=== PATIENT | female | born 1945 | race Caucasian/White ===

== ENCOUNTER 2020-06-27 12:16 | Inpatient (IN) | payer MEDICARE, MEDICAID, SELFPAY ==
[2020-06-27] VITALS (13 sets, daily range): BP systolic 116–152; BP diastolic 68–89; PULSE 65–82; RESP 14–16; TEMP 36.4–36.8; O2SAT 98–99; BMI 24.0; BMI 23.8
--- NOTE | 2020-06-27 12:12 | ECG_ITS ---
APPROVED REPORT Exam: Resting ECG HR:73 bpm ECG Measurements Heart Rate 73 AXES AR 196 P 64 QRSd 90 QRS 34 QT 402 T 90 QTc 442 <Conclusion> Normal sinus rhythm Nonspecific T wave abnormality Abnormal ECG Electronically signed by : Dre Lewis, 06/30/2020 08:33:06
--- NOTE | 2020-06-27 12:20 | XR_ITS ---
PROCEDURE: XR CHEST PORTABLE CLINICAL HISTORY: cough COMPARISON: No exams were available for comparison FINDINGS: The cardiomediastinal silhouette and pulmonary vascularity are within normal limits. The lungs are clear without infiltrates, suspicious nodules, or pleural effusions. No acute bony abnormalities. IMPRESSION: No acute findings. Dictated b Josh Sewell MD 06/27/2020 14:32 Josh Sewell MD in [place] 06/27/2020 14:32
[2020-06-27 12:35] LABS: Basophils # 0.1 K/mm3 (0-0.2); Eosinophils # 0.2 K/mm3 (0.0-0.4); Hematocrit 38.6 % (37.0-47.0); Hemoglobin 12.7 g/dL (12.2-16.2); Lymphocytes # 2.6 K/mm3 (0.7-4.5); Lymphocytes % 32.5 % (10-50); Mean Corpuscular HGB Conc 32.9 g/dL (31.8-35.4); Mean Corpuscular Hemoglobin 31.8 pg (27.0-31.2); Mean Corpuscular Volume 96.6 fl (81-99); Mean Platelet Volume 7.4 fl (7.4-10.4); Monocytes # 0.4 K/mm3 (0.1-1.0); Monocytes % 4.8 % (1.7-9.3); Neutrophils # 4.8 K/mm3 (1.8-7.8); Neutrophils % 59.8 % (37.0-80.0); Platelet Count 368 K/mm3 (142-424); Red Cell Distribution Width 12.5 % (11.5-17.5)
--- NOTE | 2020-06-27 12:41 | HMH.EDCP ---
ED Disposition Clinical Impression: NSTEMI (non-ST elevated myocardial infarction), Hypertension, Dyslipidemia Disposition: Admitted As Inpatient Condition on Discharge: Fair Time of Disposition: 13:49 (Patient admitted to Dr. Smith with cardiology consult) - Critical Care Critical Care Time: No Attestation: On , the high probability of a clinically significant, sudden or life threatening deterioration of the following system(s) required my full and direct attention, intervention and personal management. The time I documented below is in addition to time spent performing reported procedures but includes the following listed in this critical care notation. Medical Decision Making - Sushil Inquiry Pt receiving controlled substance: No Vital Signs: 06/27/20 12:17 Temperature 98 F Temperature Source Oral Pulse Rate [Left Radial] 71 Respiratory Rate 16 Blood Pressure [Right Arm] 137/83 Blood Pressure Mean [Right Arm] 101 Blood Pressure Position [Right Arm] Sitting 02 Sat by Pulse Oximetry 98 Oxygen Delivery Method Room Air - Lab Data Lab Results 06/27/20 12:23: WBC 8.0, RBC 4.00 L, Hgb 12.7, Hct 38.6, MCV 96.6, MCH 31.8 H, MCHC 32.9, RDW 12.5, Plt Count 368, MPV 7.4, Neut % (Auto) 59.8, Lymph % (Auto) 32.5, Mora % (Auto) 4.8, Eos % (Auto) 2.0, Baso % (Auto) 1.0, Neut # (Auto) 4.8, Lymph # (Auto) 2.6, Mora # (Auto) 0.4, Eos # (Auto) 0.2, Baso # (Auto) 0.1 06/27/20 12:23: Sodium 140, Potassium 4.1, Chloride 105, Carbon Dioxide 30, Anion Gap 9.1, BUN 16, Creatinine 0.60, Estimated Creat Clear 54, Estimated GFR 98, Est GFR ( Amer) 119, Glucose 104 H, Calcium 9.5, Total Bilirubin 1.0, AST 30, ALT 20, Alkaline Phosphatase 101, Troponin I 0.17 H, NT-Pro-B Natriuret Pep 1950 H, Total Protein 7.3, Albumin 4.0, Globulin 3.3 H, Albumin/Globulin Ratio 1.2, Lipase 39 Result diagrams: 06/27/20 12:23 06/27/20 12:23 Orders (Tests/Meds): ED MEDICATIONS Generic Name Dose Route Start Last Admin Trade Name Freq PRN Reason Stop Dose Admin Miscellaneous 1 each 06/27/20 13:45 Heparin Drip Consult Request * 07/27/20 13:44 CONSULT PHARMACY NOHEMI Discontinued Medications Generic Name Dose Route Start Last Admin Trade Name Freq PRN Reason Stop Dose Admin Aspirin 324 mg 06/27/20 12:34 06/27/20 12:39 Aspirin 81mg Chewable Tablet PO 06/27/20 12:35 324 mg ONCE ONE Administration Aspirin 325 mg 06/27/20 13:11 06/27/20 13:19 Aspirin 325mg Tablet PO 06/27/20 13:12 Not Given ONCE ONE Ticagrelor 180 mg 06/27/20 13:43 Brilinta 90mg Tablet PO 06/27/20 13:44 ONCE ONE ORDERS Category Date Time Status XR chest portable Stat Exams 06/27/20 12:20 Taken Full Resp Panel (COVID)(INPT) Routine Lab 06/27/20 13:47 Ordered Troponin I Q3H Lab 06/27/20 15:30 Ordered Troponin I Q3H Lab 06/27/20 18:30 Ordered EKG Request [ECG Request by /Nse] Stat Y 06/27/20 12:20 Ordered - ECG Data Tracing #1 Normal CO interval, normal QTC. Sinus rhythm with nonspecific ST changes. No previous EKG for comparison ECG initial impression date: 06/27/20 ECG initial impression time: 12:13 - Reevaluation(s) Time: 13:48 Reevaluation #1: On reevaluation, the patient is feeling slightly better. She does have elevated troponin. Given her history, she is moderate risk for acute coronary syndrome based on heart score. Patient was given aspirin and Brilinta. Cardiology was notified. Patient admitted to the hospital. Medical Decision Narrative: 74-year-old female presented to the emergency department with nonspecific chest pain for the last 24 hours. Patient is pain-free at this time. Work-up will be initiated. Chest Pain HPI - General Chief Complaint: Chest Pain Stated Complaint: chest pain Time Seen by Provider: 06/27/20 12:17 Mode of Arrival: Ambulatory Limitations: No Limitations Description of Symptoms (Recalled from ER Triage Doc. by RN): to ed per pvt car with c/o ch
[2020-06-27 12:42] LABS: Chloride 105 mmol/L (98-107); Potassium 4.1 mmoL/L (3.5-5.1); Sodium 140 mmol/L (136-145)
[2020-06-27 12:44] LABS: Alanine Aminotransferase 20 U/L (12-78); Alkaline Phosphatase 101 U/L (38-126); Aspartate Amino Transferase 30 U/L (14-36); Blood Urea Nitrogen 16 mg/dl (7-17); Creatinine Clearance Estimated 54 mL/min (50-200); Estimated Glomerular Filt Rate 98 ml/min (>60); GFR (African American) 119 ML/MIN (>60)
[2020-06-27 12:45] LABS: Albumin/Globulin Ratio 1.2 (1.1-1.8); Anion Gap 9.1 mEq/L (5-15); Calcium 9.5 mg/dl (8.4-10.2); Carbon Dioxide 30 mmol/L (22.0-30.0); Globulin 3.3 g/dL (1.3-3.2); Glucose 104 mg/dl (74-100); Lipase 39 U/L (23-300); Total Protein,Serum 7.3 g/dl (6.3-8.2)
[2020-06-27 13:03] LABS: NT Pro Brain Natriuretic Pep. 1950 pg/mL (0-125); Troponin I 0.17 ng/ml (0.00-0.034)
--- NOTE | 2020-06-27 13:44 | PC.NURSE ---
ER MD spoke with Dr. Smith who is cloud operations engineer for service pts, agreeable for admission
--- NOTE | 2020-06-27 13:45 | PC.NURSE ---
contacting cardiology per ER MD request
--- NOTE | 2020-06-27 13:46 | PC.NURSE ---
cardiology office states JCARLOS Plummer states she will come over a see pt.
--- NOTE | 2020-06-27 13:46 | PC.NURSE ---
ER states to wait to hang drip until he speaks with cardiology
--- NOTE | 2020-06-27 13:47 | PC.NURSE ---
notified lab of covid test r/t admission, spoke with onemi
--- NOTE | 2020-06-27 13:52 | PC.NURSE ---
bottle house pumper called back with bed assignment of 213 a.юлия in care management states to make pt obs admission
--- NOTE | 2020-06-27 13:53 | PC.NURSE ---
notified registration staff of admission information spoke with Sandhya
[2020-06-27 14:13] LABS: Adenovirus,PCR Not Detected (NotDetected); Bordetella Pertussis Not Detected (NotDetected); Chlamydophila Pneumoniae, PCR Not Detected (NotDetected); Coronavirus 19, PCR Not Detected (NotDetected); Coronavirus 229E Not Detected (NotDetected); Coronavirus NL63 Not Detected (NotDetected); Coronavirus OC43 Not Detected (NotDetected); Coronovirus HKU1,PCR Not Detected (NotDetected); Human Metapneumovirus Not Detected (NotDetected); Influenza A, PCR Not Detected (NotDetected); Influenza AH1, 2009 Not Detected (NotDetected); Influenza AH1, PCR Not Detected (NotDetected); Influenza AH3,PCR Not Detected (NotDetected); Influenza B, PCR Not Detected (NotDetected); Mycoplasma Pneumoniae, PCR Not Detected (NotDetected); Parainfluenza 1, PCR Not Detected (NotDetected); Parainfluenza 2, PCR Not Detected (NotDetected); Parainfluenza 3, PCR Not Detected (NotDetected); Parainfluenza 4, PCR Not Detected (NotDetected); Respiratory Syncytial Virus Not Detected (NotDetected); Rhinovirus/Enterovirus Not Detected (NotDetected)
--- NOTE | 2020-06-27 14:27 | CA_ITS ---
APPROVED REPORT EXAM: Comprehensive 2D, Doppler, and color-flow Echocardiogram Child Care Team Lead: Rain Brian RDCS Ht: 5 ft 6 in Wt: 149lbs BSA: 1.76 BP: 137/83 mmHg Indications: nstemi, 2D Dimensions LVOT 2.03 cm (M/F) 1.5-2.5 M-Mode Dimensions RVDd 2.05 cm (0.9-2.6) LVDd 6.16 cm (3.5-5.7) LVDs 4.67 cm (3.5-5.7) IVSd 0.76 cm (0.6-1.1) PWd 0.80 cm (0.6-1.1) EF (Teich) 47.30% FS 24.20% EDV (Teich) 191.10 mL ESV (Teich) 100.80 mL LV Diastology E/A Ratio 0.35 Mitral Valve MV A Velocity 88.00 (40-130 cm/s) Left Ventricle Left atrium is mildly enlarged, left ventricle is normal size, mild concentric left ventricular hypertrophy, visually estimated ejection fraction 30%, there is mild hypo-to akinesis involving mid to distal septum, anterior, anterior apical and apical wall. Grade 1 diastolic dysfunction seen without tissue Doppler evidence of raise left atrial pressure. Right Ventricle Right atrium and right ventricular normal size and contractility. Aortic Valve Aortic valve is minimally thickened and fibrosed, there is no aortic stenosis or aortic insufficiency. Mitral Valve Mitral valve is grossly normal, there is mild mitral regurgitation. Tricuspid Valve Tricuspid valve is grossly normal, there is mild tricuspid regurgitation, tricuspid regurgitation jet velocity is inadequate for calculation of the right ventricular systolic pressure. Pulmonic Valve Pulmonic valve is poorly visualized. Great Vessels Aortic root is normal size. Pericardium No significant pericardial effusion noted. Conclusion 1. Mildly enlarged left atrium, normal left ventricular size, mild concentric left ventricular hypertrophy, visually estimated ejection fraction 30% with multiple segmental wall motion abnormality described above, grade 1 diastolic dysfunction seen without tissue Doppler evidence of raise left atrial pressure. 2. Mild mitral and tricuspid regurgitation. 3. No significant pericardial effusion noted. Electronically signed by : Memo Elizalde, 06/27/2020 16:27:30
[2020-06-27 14:58] LABS: Activated Partial Thrombo Time 24.9 seconds (23.6-34.0)
--- NOTE | 2020-06-27 15:00 | PC.NURSE ---
pt resting quietly offers no c/o at present
--- NOTE | 2020-06-27 15:01 | HMH.CNCARD ---
History of Present Illness Consult date: 06/27/20 Requesting physician: Jaswant Vazquez Consult reason: chest pain Chief complaint: chest pain History of present illness: This is a 74 year old white female who presented to the ED with chest pain. She states that it feels like something is sitting on her chest. She states that her chest pain started around 6 PM last night. She describes it as a squeezing heavy sensation. She states that this occurs off and on. She states that the pain reoccurred this morning. She states that it is a severe pain and rates it an 8-9 out of 10 in intensity. She states that she does get short of breath and diaphoretic with the chest pain. There is no radiation of the chest pain. Nothing worsens the chest pain. Her chest pain is now a 4-5/10 in intensity. She states that she has never had symptoms like this before and states that she has no health problems until now. She denies hypertension or hyperlipidemia. She denies tobacco use. She does report that her father had heart problems and her sister had an [place] at the age of 69. She denies any fever, chills, nausea, vomiting, diarrhea, PND or orthopnea. [facility] History I have reviewed the patient's past medical history: Yes *Have you ever received a pneumonia vaccine?: Yes *Have you received a flu vaccine this season?: Yes - *Social History Alcohol Intake: never *Occupational Status:: other Housing: other *Travel in the last 8 weeks: None Family Hx:: Coronary Artery Disease, Heart Attack Meds Home Medications Medication Instructions Recorded Confirmed Type Diclofenac Sodium [Voltaren-Xr 100 mg PO DAILY 06/27/20 06/27/20 History 100mg Tab] Hydrocodone/Acetaminophen [Lortab 10 mg PO ACHS 06/27/20 06/27/20 History 10/325mg tablet] Phentermine HCl 37.5 mg PO DAILY 06/27/20 06/27/20 History Allergies Allergy/AdvReac Type Severity Reaction Status Date / Time No Known Allergies Allergy Verified 06/27/20 12:23 Review of Systems - Review of Systems Review of systems:: pertinent systems reviewed and negative unless documented below - *Cardiovascular Reports chest pain, Reports chest pain at rest, Reports chest pain with activity, Reports shortness of breath - *Neurologic Denies headache(s) Exam Vital signs and Labs for Last 24 Hours: Temp Pulse Resp BP Pulse Ox 98 F 71 16 137/83 98 06/27/20 12:17 06/27/20 12:17 06/27/20 12:17 06/27/20 12:17 06/27/20 12:17 Laboratory Results - last 24 hr 06/27/20 12:23: WBC 8.0, RBC 4.00 L, Hgb 12.7, Hct 38.6, MCV 96.6, MCH 31.8 H, MCHC 32.9, RDW 12.5, Plt Count 368, MPV 7.4, Neut % (Auto) 59.8, Lymph % (Auto) 32.5, Lipscomb % (Auto) 4.8, Eos % (Auto) 2.0, Baso % (Auto) 1.0, Neut # (Auto) 4.8, Lymph # (Auto) 2.6, Lipscomb # (Auto) 0.4, Eos # (Auto) 0.2, Baso # (Auto) 0.1 06/27/20 12:23: Sodium 140, Potassium 4.1, Chloride 105, Carbon Dioxide 30, Anion Gap 9.1, BUN 16, Creatinine 0.60, Estimated Creat Clear 54, Estimated GFR 98, Est GFR ( Amer) 119, Glucose 104 H, Calcium 9.5, Total Bilirubin 1.0, AST 30, ALT 20, Alkaline Phosphatase 101, Troponin I 0.17 H, NT-Pro-B Natriuret Pep 1950 H, Total Protein 7.3, Albumin 4.0, Globulin 3.3 H, Albumin/Globulin Ratio 1.2, Lipase 39 06/27/20 12:23: APTT 24.9 I & O for Last 24 hours: Intake & Output 06/24/20 06/25/20 06/26/20 06/27/20 23:59 23:59 23:59 23:59 Weight 149 lb Narrative: KG is sinus rhythm with nonspecific T wave abnormalities and a rate of 73. - Constitutional no acute distress, average body habitus - *Routine HEENT Exam Head: Present: normocephalic, atraumatic Eye: Present: EOMI, PERRL ENT: Present: mucous membranes moist - *Routine Neck Exam Present: supple, full ROM, normal carotid upstroke. Absent: JVD, carotid bruit, lymphadenopathy - *Routine Respiratory Exam Present: CTA bilaterally - *Routine Cardiovascular Exam Present: RRR, Normal S1, Normal S2. Absent: murmur - *Routine Abdomin
--- NOTE | 2020-06-27 15:17 | P.CONPHA_ITS ---
[facility] Pharmacy Heparin Dosing - Demographic Data Admission date:: 06/27/20 Date: 06/27/20 Time: 15:17 Allergies/Adverse Reactions: Allergies Allergy/AdvReac Type Severity Reaction Status Date / Time No Known Allergies Allergy Verified 06/27/20 12:23 Height: 1.68 m Weight: 67.5 kg - Indication Medication therapy:: Heparin Patient Problems: Current Active Problems NSTEMI (non-ST elevated myocardial infarction) (Acute) Hypertension (Acute) Dyslipidemia (Acute) Elevated troponin (Acute) Unstable angina (Acute) Ischemic cardiomyopathy (Acute) LV dysfunction (Acute) Acute systolic CHF (congestive heart failure) (Acute) CVA?: No Bleeding problem?: No Kidney disease?: No AL?: No Desired PTT range:: 60-80 seconds - Labs Anticoagulation Lab Results:: 06/27/20 12:23 Hgb 12.7 Hct 38.6 Plt Count 368 - Monitoring Dose Monitor 1 Date: 06/27/20 Time: 14:45 PTT Result:: 24.9 Infusion Rate:: 800 UNITS/HR Comment:: 4,000 UNITS BOLUS [id number] Dose Monitor 2 Date: 06/27/20 Time: 20:45 PTT Result:: 39.0 Infusion Rate:: INCREASE TO 18 ML/HR AND 3,500 UNIT BOLUS Dose Monitor 3 Date: 06/28/20 Time: 04:20 PTT Result:: 68.6 Infusion Rate:: 18 ML/HR Dose Monitor 4 Date: 06/28/20 Time: 11:00 PTT Result:: 56.2 Infusion Rate:: RATE INCREASED TO 19 ML/HR - Core Measures Is INR > or = 2 at discharge?: No Most Recent Labs:: Laboratory Results - last 24 hr 06/27/20 12:23: WBC 8.0, RBC 4.00 L, Hgb 12.7, Hct 38.6, MCV 96.6, MCH 31.8 H, MCHC 32.9, RDW 12.5, Plt Count 368, MPV 7.4, Neut % (Auto) 59.8, Lymph % (Auto) 32.5, Flagler % (Auto) 4.8, Eos % (Auto) 2.0, Baso % (Auto) 1.0, Neut # (Auto) 4.8, Lymph # (Auto) 2.6, Flagler # (Auto) 0.4, Eos # (Auto) 0.2, Baso # (Auto) 0.1 06/27/20 12:23: Sodium 140, Potassium 4.1, Chloride 105, Carbon Dioxide 30, Anion Gap 9.1, BUN 16, Creatinine 0.60, Estimated Creat Clear 54, Estimated GFR 98, Est GFR ( Amer) 119, Glucose 104 H, Calcium 9.5, Total Bilirubin 1.0, AST 30, ALT 20, Alkaline Phosphatase 101, Troponin I 0.17 H, NT-Pro-B Natriuret Pep 1950 H, Total Protein 7.3, Albumin 4.0, Globulin 3.3 H, Albumin/Globulin Ratio 1.2, Lipase 39 06/27/20 12:23: APTT 24.9 Were Heparin and Warfarin started on the same day?: No If not, why?: BRILINTA ORDERED
--- NOTE | 2020-06-27 15:30 | PC.NURSE ---
contacted lab to check on status of covid test result for admission lab stated it would be approx 70 minutes
[2020-06-27 15:52] LABS: Troponin I 0.22 ng/ml (0.00-0.034)
--- NOTE | 2020-06-27 15:52 | PC.NURSE ---
heparin drip verified with Naima in pharmacy
--- NOTE | 2020-06-27 15:58 | HMH.PHAINT ---
HOME MEDICATION RECONCILIATION COMPLETED USING LIST FROM [facility] IN [facility]
--- NOTE | 2020-06-27 15:59 | P.CONPHA_ITS ---
[facility] Pharmacy VTE Monitoring - Patient Demographics Admission date: 06/27/20 Report Date: 06/27/20 Time: 15:59 Allergies/Adverse Reactions: Patient Allergies No Known Allergies Allergy (Verified 06/27/20 12:23) Height: 1.68 m Weight: 67.5 kg Patient Problems: Current Active Problems NSTEMI (non-ST elevated myocardial infarction) (Acute) Hypertension (Acute) Dyslipidemia (Acute) Elevated troponin (Acute) Unstable angina (Acute) - VTE Risk Labs: VTE Related Lab Results Hgb 12.7 g/dL (12.2-16.2) 06/27/20 12:23 Hct 38.6 % (37.0-47.0) 06/27/20 12:23 Plt Count 368 K/mm3 (142-424) 06/27/20 12:23 APTT 24.9 seconds (23.6-34.0) 06/27/20 12:23 BUN 16 mg/dl (7-17) 06/27/20 12:23 Creatinine 0.60 mg/dl (0.52-1.04) 06/27/20 12:23 Estimated Creat Clear 54 mL/min (50-200) 06/27/20 12:23 Clinical Trial Participant: No - Prophylaxis VTE Prophylaxis Ordered?: Yes Types of VTE Prophylaxis: TEDS Knee High, Pharmacological Pharmacologic Type: Heparin
--- NOTE | 2020-06-27 17:07 | PC.NURSE ---
report called to floor
--- NOTE | 2020-06-27 17:24 | HMH.HP ---
*Admission Date: 06/27/20 *Chief complaint: chest pain *History of present illness: This is a 74 year old white female who presented to the ED with chest pain. She states that it feels like something is sitting on her chest. She states that her chest pain started around 6 PM last night. She describes it as a squeezing heavy sensation. She states that this occurs off and on. She states that the pain reoccurred this morning. She states that it is a severe pain and rates it an 8-9 out of 10 in intensity. She states that she does get short of breath and diaphoretic with the chest pain. There is no radiation of the chest pain. Nothing worsens the chest pain. Her chest pain is now a 4-5/10 in intensity. She states that she has never had symptoms like this before and states that she has no health problems until now. She denies hypertension or hyperlipidemia. She denies tobacco use. She does report that her father had heart problems and her sister had an [place] at the age of 69. She denies any fever, chills, nausea, vomiting, diarrhea, PND or orthopnea. [facility] History Medical History: Denies:: Atherosclerotic Heart Disease, Chronic Obstructive Pulmonary Disease (COPD), Diabetes Mellitus Type 2, Gastroesophageal Reflux Disease(GERD) *Have you ever received a pneumonia vaccine?: Yes *Have you received a flu vaccine this season?: Yes Comment: has had back surgery - *Social History Smoking Status: Never smoker Alcohol Intake: never *Occupational Status:: other Housing: other *Travel in the last 8 weeks: None Family Hx:: Coronary Artery Disease, Heart Attack Review of Systems - Constitutional Denies fever(s), Denies headache(s) - Eyes Denies change in vision - ENT Denies ear pain, Denies nasal congestion, Denies sore throat - *Cardiovascular Reports chest pain, Denies shortness of breath, Denies irregular heart rhythm, Denies leg swelling, Denies rapid, pounding, or irregular heartbeat - *Respiratory Denies chest congestion, Denies cough, Denies shortness of breath - *Gastrointestinal Denies abdominal pain, Denies heartburn, Denies black, tarry stools, Denies nausea, Denies vomiting - *Genitourinary Denies difficulty urinating - *Musculoskeletal Reports back pain, Denies muscle weakness - *Neurologic Denies abnormal walking, Denies headache(s), Denies seizure-like activity Meds Home Medications Medication Instructions Recorded Confirmed Type Diclofenac Sodium [Diclofenac 75mg 75 mg PO BID PRN 06/27/20 06/27/20 History Tab] Hydrocodone/Acetaminophen [Lortab 10 mg PO ACHS 06/27/20 06/27/20 History 10/325mg tablet] Phentermine HCl 37.5 mg PO DAILY 06/27/20 06/27/20 History Allergies Allergy/AdvReac Type Severity Reaction Status Date / Time No Known Allergies Allergy Verified 06/27/20 12:23 Exam Vital signs and Labs for Last 24 Hours: Temp Pulse Resp BP Pulse Ox 98 F 73 16 137/81 98 06/27/20 12:17 06/27/20 17:11 06/27/20 12:17 06/27/20 17:11 06/27/20 13:00 Laboratory Results - last 24 hr 06/27/20 12:23: WBC 8.0, RBC 4.00 L, Hgb 12.7, Hct 38.6, MCV 96.6, MCH 31.8 H, MCHC 32.9, RDW 12.5, Plt Count 368, MPV 7.4, Neut % (Auto) 59.8, Lymph % (Auto) 32.5, Scott % (Auto) 4.8, Eos % (Auto) 2.0, Baso % (Auto) 1.0, Neut # (Auto) 4.8, Lymph # (Auto) 2.6, Scott # (Auto) 0.4, Eos # (Auto) 0.2, Baso # (Auto) 0.1 06/27/20 12:23: Sodium 140, Potassium 4.1, Chloride 105, Carbon Dioxide 30, Anion Gap 9.1, BUN 16, Creatinine 0.60, Estimated Creat Clear 54, Estimated GFR 98, Est GFR ( Amer) 119, Glucose 104 H, Calcium 9.5, Total Bilirubin 1.0, AST 30, ALT 20, Alkaline Phosphatase 101, Troponin I 0.17 H, NT-Pro-B Natriuret Pep 1950 H, Total Protein 7.3, Albumin 4.0, Globulin 3.3 H, Albumin/Globulin Ratio 1.2, Lipase 39 06/27/20 12:23: APTT 24.9 06/27/20 15:15: Troponin I 0.22 H I & O for Last 24 hours: Intake & Output 06/25/20 06/26/20 06/27/20 06/28/20 11:59 11:59 11:59 11:59
[2020-06-27 19:38] LABS: Troponin I 0.24 ng/ml (0.00-0.034)
[2020-06-28] VITALS (35 sets, daily range): BP systolic 80–168; BP diastolic 41–86; PULSE 60–90; RESP 14–20; TEMP 36.6–36.8; O2SAT 93–100; BMI 23.8
--- NOTE | 2020-06-28 | IR_ITS ---
APPROVED REPORT Patient Location: Inpatient PROCEDURES Left heart catheterization Left ventriculogram Selective coronary angiogram Drug-eluting stent deployment to the proximal large ramus intermedius Drug-eluting stent deployment to the proximal LAD INDICATION Acute non-ST elevation myocardial infarction, Coronary artery disease Informed consent was obtained prior to the procedure. COMPLICATIONS NONE Estimated Blood Loss: LESS THAN 10 ML TECHNIQUE One percent lidocaine used to anesthetize the right anterior aspect of the wrist. The right radial artery was accessed via the Seldinger technique. A 6 Azeri sheath was placed in the right radial artery. 2.5 mg of verapamil, 800 mcg of nitroglycerin, 1mg Lidocaine and 5000 U Heparin were given through the arterial sheath. A Papa catheter was used to perform left heart catheterization left ventriculogram and selective coronary angiogram. At the end the diagnostic angiogram therapeutic heparin was administered and a choice floppy wire was placed into the ramus intermedius. A 3 mm x 12 mm resolute antoine stent was deployed at 14 margie in the ramus intermedius reducing the critical stenosis to 0%. An additional choice floppy wire was placed into the LAD and a 2.75 x 12 mm resolute antoine stent was deployed at 22 margie reducing the critical stenosis to 0%. KATE II flow was present down the LAD before the procedure with KATE-3 flow at the end of the procedure. KATE-3 flow was present down the ramus intermedius before and after the procedure. At the end of the procedure the apparatus was removed the sheath was removed good hemostasis was achieved using TR banding patient was transferred to the postop holding area stable condition ANGIOGRAPHIC RESULTS The left main artery Normal The left anterior descending artery Has a proximal ruptured plaque creating an 80% stenosis. KATE II flow was present. Following the procedure the proximal LAD is widely patent with excellent KATE-3 flow followed by mid vessel 30 to 40% smooth stenosis The circumflex artery A large ramus intermedius has a proximal 90% stenosis. The true circumflex artery is a small vessel and normal The right coronary artery Is a large dominant vessel with mild proximal and mid vessel 10% luminal irregularities The GIBBS ventriculogram reveals Preserved 55% with mid anterior apical hypokinesis The left ventricular end-diastolic pressure 10 mmHg IMPRESSION Critical two-vessel coronary disease as described above with critical disease in the proximal LAD and proximal large ramus intermedius Successful stenting the proximal LAD and proximal large ramus intermedius critical disease reduced to 0% with one drug-eluting stent in each vessel Preserved ejection fraction with regional wall motion abnormality Normal left ventricular end-diastolic pressure PLAN 1. Brilinta 90 twice daily plus aspirin 81 mg daily for 1 year 2. LDL less than 55 3. Avoidance of tobacco products 4. PARRIS inhibitor is on beta-blockers once hemodynamically stable to tolerate medicines 5. Cardiac rehabilitation Electronically signed by : Prashant Fernandez, 06/28/2020 14:30:27
[2020-06-28 04:53] LABS: Basophils # 0.1 K/mm3 (0-0.2); Eosinophils # 0.2 K/mm3 (0.0-0.4); Eosinophils % 2.2 % (0.1-12.0); Hematocrit 35.9 % (37.0-47.0); Hemoglobin 12.2 g/dL (12.2-16.2); Lymphocytes # 1.8 K/mm3 (0.7-4.5); Lymphocytes % 25.9 % (10-50); Mean Corpuscular HGB Conc 33.9 g/dL (31.8-35.4); Mean Corpuscular Hemoglobin 31.7 pg (27.0-31.2); Mean Corpuscular Volume 93.5 fl (81-99); Mean Platelet Volume 7.4 fl (7.4-10.4); Monocytes # 0.4 K/mm3 (0.1-1.0); Monocytes % 5.7 % (1.7-9.3); Neutrophils # 4.5 K/mm3 (1.8-7.8); Neutrophils % 65.2 % (37.0-80.0); Platelet Count 358 K/mm3 (142-424); Red Blood Count 3.83 M/mm3 (4.20-5.40); Red Cell Distribution Width 12.7 % (11.5-17.5); White Blood Count 6.9 K/mm3 (4.8-10.8)
[2020-06-28 04:56] LABS: Alanine Aminotransferase 19 U/L (12-78); Albumin Level 3.7 g/dl (3.5-5.0); Alkaline Phosphatase 103 U/L (38-126); Anion Gap 10.1 mEq/L (5-15); Aspartate Amino Transferase 31 U/L (14-36); Bilirubin,Indirect 0.8 mg/dL (0.0-0.9); Bilirubin,Total 0.8 mg/dl (0.2-1.3); Bilirubin,Unconjugated 0.9 mg/dL (0.0-1.1); Blood Urea Nitrogen 17 mg/dl (7-17); Calcium 9.1 mg/dl (8.4-10.2); Carbon Dioxide 31 mmol/L (22.0-30.0); Chloride 103 mmol/L (98-107); Chol/HDL Ratio 3.5 (1-3.5); Cholesterol 199 mg/dl (140-200); Creatinine Clearance Estimated 54 mL/min (50-200); Estimated Glomerular Filt Rate 82 ml/min (>60); GFR (African American) 100 ML/MIN (>60); Glucose 109 mg/dl (74-100); HDL Cholesterol 57 mg/dl (40-60); Potassium 4.1 mmoL/L (3.5-5.1); Sodium 140 mmol/L (136-145); Total Protein,Serum 6.7 g/dl (6.3-8.2); Triglycerides 73 mg/dl (30-150); VLDL Cholesterol 15 mg/dL (0-40)
[2020-06-28 05:06] LABS: Direct LDL Cholesterol 115.57 mg/dL (100-129)
[2020-06-28 05:11] LABS: Activated Partial Thrombo Time 68.6 seconds (23.6-34.0)
--- NOTE | 2020-06-28 06:03 | PC.NURSE ---
A&OX4. PT TOLERATING RA WELL THIS SHIFT. PT HAS HAD NO C/O CP, SOA, NA/VO THIS SHIFT. PT HAS RESTTED WITH EYES CLOSED MAJORITY OF SHIFT. HEPARIN GOING AT 18ML/HR PER J PINTO. PT TOLERATING NPO DIET SINCE 0000. NO C/O THUS FAR, VSS WILL CONTINUE TO MONITOR.
--- NOTE | 2020-06-28 08:50 | HMH.ACPN2 ---
Internal Medicine - PN: Subj *Date: 06/28/20 *Time: 08:51 Interval history: Patient states she is feeling well this morning. She denies any chest pain or shortness of breath. She states she slept off and on last night. She is n.p.o. this morning for heart cath. Exam Vital signs and Labs for Last 24 Hours: Temp Pulse Resp BP Pulse Ox 98.1 F 70 20 122/67 96 06/28/20 08:00 06/28/20 08:00 06/28/20 08:00 06/28/20 08:00 06/28/20 08:00 Laboratory Results - last 24 hr 06/27/20 12:23: WBC 8.0, RBC 4.00 L, Hgb 12.7, Hct 38.6, MCV 96.6, MCH 31.8 H, MCHC 32.9, RDW 12.5, Plt Count 368, MPV 7.4, Neut % (Auto) 59.8, Lymph % (Auto) 32.5, [place] % (Auto) 4.8, Eos % (Auto) 2.0, Baso % (Auto) 1.0, Neut # (Auto) 4.8, Lymph # (Auto) 2.6, [place] # (Auto) 0.4, Eos # (Auto) 0.2, Baso # (Auto) 0.1 06/27/20 12:23: Sodium 140, Potassium 4.1, Chloride 105, Carbon Dioxide 30, Anion Gap 9.1, BUN 16, Creatinine 0.60, Estimated Creat Clear 54, Estimated GFR 98, Est GFR ( Amer) 119, Glucose 104 H, Calcium 9.5, Total Bilirubin 1.0, AST 30, ALT 20, Alkaline Phosphatase 101, Troponin I 0.17 H, NT-Pro-B Natriuret Pep 1950 H, Total Protein 7.3, Albumin 4.0, Globulin 3.3 H, Albumin/Globulin Ratio 1.2, Lipase 39 06/27/20 12:23: APTT 24.9 06/27/20 13:47: Chlamy pneumoniae PCR Not detected, Adenovirus (PCR) Not detected, B. pertussis DNA (PCR) Not detected, Coronavirus OC43 (PCR) Not detected, Coronavirus HKU1 (PCR) Not detected, Coronavirus 229E (PCR) Not detected, COVID-19 PCR Not detected, Coronavirus NL63 (PCR) Not detected, Human Metapneumovir PCR Not detected, Influenza A (H1) PCR Not detected, Influ A (H1N1/09) PCR Not detected, Influenza A (H3) PCR Not detected, Influenza Type A (PCR) Not detected, Influenza Type B (PCR) Not detected, M. pneumoniae (PCR) Not detected, Parainfluenza 1 (PCR) Not detected, Parainfluenza 2 (PCR) Not detected, Parainfluenza 3 (PCR) Not detected, Parainfluenza 4 (PCR) Not detected, RSV (PCR) Not detected, Entero/Rhino (PCR) Not detected 06/27/20 15:15: Troponin I 0.22 H 06/27/20 18:36: Troponin I 0.24 H 06/27/20 20:31: APTT 39.0 H D 06/28/20 04:20: WBC 6.9, RBC 3.83 L, Hgb 12.2, Hct 35.9 L, MCV 93.5, MCH 31.7 H, MCHC 33.9, RDW 12.7, Plt Count 358, MPV 7.4, Neut % (Auto) 65.2, Lymph % (Auto) 25.9, [place] % (Auto) 5.7, Eos % (Auto) 2.2, Baso % (Auto) 1.0, Neut # (Auto) 4.5, Lymph # (Auto) 1.8, [place] # (Auto) 0.4, Eos # (Auto) 0.2, Baso # (Auto) 0.1 06/28/20 04:20: Sodium 140, Potassium 4.1, Chloride 103, Carbon Dioxide 31 H, Anion Gap 10.1, BUN 17, Creatinine 0.70, Estimated Creat Clear 54, Estimated GFR 82, Est GFR ( Amer) 100, Glucose 109 H, Calcium 9.1, Total Bilirubin 0.8, Direct Bilirubin 0.0, Conjugated Bilirubin 0.0, Indirect Bilirubin 0.8, Unconjugated Bilirubin 0.9, AST 31, ALT 19, Alkaline Phosphatase 103, Total Protein 6.7, Albumin 3.7, Triglycerides 73, Cholesterol 199, LDL Cholesterol Direct 115.57, VLDL Cholesterol 15, HDL Cholesterol 57, Cholesterol/HDL Ratio 3.5 06/28/20 04:20: APTT 68.6 H* D I & O for Last 24 hours: Intake & Output 06/25/20 06/26/20 06/27/20 06/28/20 11:59 11:59 11:59 11:59 Intake Total 530 / 530 Balance 530 / 530 Weight 148 lb 9 oz - Constitutional no acute distress - *Routine Respiratory Exam Present: CTA bilaterally - *Routine Cardiovascular Exam Present: RRR - *Routine Abdominal Exam Present: soft, normoactive bowel sounds. Absent: tenderness - *Routine Extremities Exam Absent: cyanosis, clubbing, edema - *Routine Skin Exam Present: warm. Absent: rash - *Routine Neurological Exam Present: alert, oriented X3 Assessment and Plan (1) NSTEMI (non-ST elevated myocardial infarction) Current visit: Yes Status: Acute Category: Medical Code(s): I21.4 - Non-ST elevation (NSTEMI) myocardial infarction (2) Elevated troponin Current visit: Yes Status: Acute Category: Medical Code(s): R79.89 - Other specified abnormal findings of blood chemistry
--- NOTE | 2020-06-28 10:00 | HMH.PNCARD ---
Subjective Date: 06/28/20 Time: 10:00 Principal diagnosis: non-stemi Interval history: This is a 74-year-old white female who presented to the emergency department with chest pain. She was found to have a non-ST elevation myocardial infarction and is scheduled to undergo left cardiac catheterization today to evaluate for coronary artery disease. The patient was having severe pain the substernal aspect of her chest. She described this as a squeezing, heavy sensation that was associated with shortness of breath and diaphoresis. The patient stated that the chest pain did not radiate. She was started on Brilinta, heparin drip and Nitropaste yesterday. She states that she did have some twinges in the left side of her chest pain overnight but the medications here at the hospital helped to improve her chest pain. This morning she denies any chest pain or pressure. She denies any shortness of breath or edema. She denies any fever, chills, nausea, vomiting, diarrhea, PND or orthopnea. Her ejection fraction on echocardiogram is 30% consistent with ischemic cardiomyopathy and severe LV dysfunction. Exam Vital signs and Labs for Last 24 Hours: Temp Pulse Resp BP Pulse Ox 98.1 F 70 20 122/67 96 06/28/20 08:00 06/28/20 08:00 06/28/20 08:00 06/28/20 08:00 06/28/20 08:00 Laboratory Results - last 24 hr 06/27/20 12:23: WBC 8.0, RBC 4.00 L, Hgb 12.7, Hct 38.6, MCV 96.6, MCH 31.8 H, MCHC 32.9, RDW 12.5, Plt Count 368, MPV 7.4, Neut % (Auto) 59.8, Lymph % (Auto) 32.5, [place] % (Auto) 4.8, Eos % (Auto) 2.0, Baso % (Auto) 1.0, Neut # (Auto) 4.8, Lymph # (Auto) 2.6, [place] # (Auto) 0.4, Eos # (Auto) 0.2, Baso # (Auto) 0.1 06/27/20 12:23: Sodium 140, Potassium 4.1, Chloride 105, Carbon Dioxide 30, Anion Gap 9.1, BUN 16, Creatinine 0.60, Estimated Creat Clear 54, Estimated GFR 98, Est GFR ( Amer) 119, Glucose 104 H, Calcium 9.5, Total Bilirubin 1.0, AST 30, ALT 20, Alkaline Phosphatase 101, Troponin I 0.17 H, NT-Pro-B Natriuret Pep 1950 H, Total Protein 7.3, Albumin 4.0, Globulin 3.3 H, Albumin/Globulin Ratio 1.2, Lipase 39 06/27/20 12:23: APTT 24.9 06/27/20 13:47: Chlamy pneumoniae PCR Not detected, Adenovirus (PCR) Not detected, B. pertussis DNA (PCR) Not detected, Coronavirus OC43 (PCR) Not detected, Coronavirus HKU1 (PCR) Not detected, Coronavirus 229E (PCR) Not detected, COVID-19 PCR Not detected, Coronavirus NL63 (PCR) Not detected, Human Metapneumovir PCR Not detected, Influenza A (H1) PCR Not detected, Influ A (H1N1/09) PCR Not detected, Influenza A (H3) PCR Not detected, Influenza Type A (PCR) Not detected, Influenza Type B (PCR) Not detected, M. pneumoniae (PCR) Not detected, Parainfluenza 1 (PCR) Not detected, Parainfluenza 2 (PCR) Not detected, Parainfluenza 3 (PCR) Not detected, Parainfluenza 4 (PCR) Not detected, RSV (PCR) Not detected, Entero/Rhino (PCR) Not detected 06/27/20 15:15: Troponin I 0.22 H 06/27/20 18:36: Troponin I 0.24 H 06/27/20 20:31: APTT 39.0 H D 06/28/20 04:20: WBC 6.9, RBC 3.83 L, Hgb 12.2, Hct 35.9 L, MCV 93.5, MCH 31.7 H, MCHC 33.9, RDW 12.7, Plt Count 358, MPV 7.4, Neut % (Auto) 65.2, Lymph % (Auto) 25.9, [place] % (Auto) 5.7, Eos % (Auto) 2.2, Baso % (Auto) 1.0, Neut # (Auto) 4.5, Lymph # (Auto) 1.8, [place] # (Auto) 0.4, Eos # (Auto) 0.2, Baso # (Auto) 0.1 06/28/20 04:20: Sodium 140, Potassium 4.1, Chloride 103, Carbon Dioxide 31 H, Anion Gap 10.1, BUN 17, Creatinine 0.70, Estimated Creat Clear 54, Estimated GFR 82, Est GFR ( Amer) 100, Glucose 109 H, Calcium 9.1, Total Bilirubin 0.8, Direct Bilirubin 0.0, Conjugated Bilirubin 0.0, Indirect Bilirubin 0.8, Unconjugated Bilirubin 0.9, AST 31, ALT 19, Alkaline Phosphatase 103, Total Protein 6.7, Albumin 3.7, Triglycerides 73, Cholesterol 199, LDL Cholesterol Direct 115.57, VLDL Cholesterol 15, HDL Cholesterol 57, Cholesterol/HDL Ratio 3.5 06/28/20 04:20: APTT 68.6 H* D I & O for Last 24 hours: Intake & Output 06/25/20 06/26/20 06/27/20 06/28/20 23:59 23:59 23:59 2
[2020-06-28 11:50] LABS: Activated Partial Thrombo Time 56.2 seconds (23.6-34.0)
--- NOTE | 2020-06-28 13:07 | PC.NURSE ---
PT TO ALGOLOGIST FOR PROCEDURE
--- NOTE | 2020-06-28 14:07 | PC.NURSE ---
Addendum entered by Martha Camarillo RN 06/28/20 14:28: also verified with sue busch Original Note: verified with cathlab to cancel heparin drip and nitropaste order.
[2020-06-28 16:00] LABS: CATHL Activated Clotting Time 375 SEC (74-125)
--- NOTE | 2020-06-28 16:34 | PC.NURSE ---
patient has done well since return from cathlab. has been up to restroom. radial band remains in place. no signs of bleeding. patient is wearing life vest at this time, stating she wants to try and get used to it. family at bedside. rings out as needed. education on brilinta done with patient and family. vitals are stable will continue to monitor.
--- NOTE | 2020-06-28 18:02 | PC.NURSE ---
spoke with md senior manager asset protection about patient diarrhea after eating which is normal per patient. md okayed to order 4mg of immodium for first dose followed by 2mg q4hprn for diarrhea
[2020-06-28 18:28] LABS: Activated Partial Thrombo Time 42.1 seconds (23.6-34.0)
--- NOTE | 2020-06-28 20:48 | PC.NURSE ---
1944 upon initial assessment BP is 80-90's systolic, with MAP below 65, Dr. Fernandez notified, new orders received, read back and verified
--- NOTE | 2020-06-28 23:19 | PC.NURSE ---
2309 pt systolic pressures remain 80-90's after receiving 400 mL of fluid, pt denies nausea, dizziness, weakness, blurred vision, or diphoresis, Dr. Fernandez notified of above noted, new orders received, read back and verified
[2020-06-29] VITALS (20 sets, daily range): BP systolic 84–107; BP diastolic 43–58; PULSE 69–82; RESP 15–17; TEMP 36.4–36.8; O2SAT 94–100; BMI 25.0; BMI 25.1
[2020-06-29 01:31] LABS: Activated Partial Thrombo Time 22.3 seconds (23.6-34.0)
[2020-06-29 06:08] LABS: Basophils # 0.1 K/mm3 (0-0.2); Basophils % 0.5 % (0.1-2.0); Eosinophils # 0.2 K/mm3 (0.0-0.4); Eosinophils % 1.6 % (0.1-12.0); Hematocrit 34.6 % (37.0-47.0); Hemoglobin 11.8 g/dL (12.2-16.2); Lymphocytes # 2.3 K/mm3 (0.7-4.5); Lymphocytes % 22.2 % (10-50); Mean Corpuscular HGB Conc 34.1 g/dL (31.8-35.4); Mean Corpuscular Volume 93.8 fl (81-99); Mean Platelet Volume 7.5 fl (7.4-10.4); Monocytes # 0.6 K/mm3 (0.1-1.0); Monocytes % 5.8 % (1.7-9.3); Neutrophils # 7.2 K/mm3 (1.8-7.8); Platelet Count 342 K/mm3 (142-424); Red Blood Count 3.69 M/mm3 (4.20-5.40); Red Cell Distribution Width 12.4 % (11.5-17.5); White Blood Count 10.3 K/mm3 (4.8-10.8)
[2020-06-29 06:09] LABS: Chloride 107 mmol/L (98-107)
[2020-06-29 06:10] LABS: Potassium 3.9 mmoL/L (3.5-5.1); Sodium 137 mmol/L (136-145)
[2020-06-29 06:13] LABS: Anion Gap 4.9 mEq/L (5-15); Blood Urea Nitrogen 17 mg/dl (7-17); Calcium 8.7 mg/dl (8.4-10.2); Carbon Dioxide 29 mmol/L (22.0-30.0); Creatinine Clearance Estimated 57 mL/min (50-200); Estimated Glomerular Filt Rate 71 ml/min (>60); GFR (African American) 85 ML/MIN (>60); Glucose 98 mg/dl (74-100)
--- NOTE | 2020-06-29 07:52 | PC.NURSE ---
did speak with sue busch at this time. relayed that yesterday after lasix and aldactone patient bp dropped in to the 80s/40s range. patient got a liter of fluids over night. Bp is slightly better at this time with be upper 90s systolic. however, this morning patient is ordered lasix, aldactone, metoprolol, and lisinopril. Stated to hold lasix, and he would be in to see the patient.
--- NOTE | 2020-06-29 08:02 | HMH.PNCARD ---
Subjective Date: 06/29/20 Time: 08:02 Principal diagnosis: non-stemi Interval history: 74-year-old white female lying in bed in no acute distress. Still feels a little fatigued but no chest pain, pressure or tightness. Blood pressure systolic in the 80s yesterday after diuretics. Patient was given IV fluids overnight. Blood pressure this morning is in the 90s systolic. Patient denies any dizziness. She is anxious to go home if possible. LifeVest is in place. Exam Vital signs and Labs for Last 24 Hours: Temp Pulse Resp BP Pulse Ox 98.3 F 82 16 96/48 L 95 06/29/20 04:00 06/29/20 07:00 06/29/20 07:00 06/29/20 07:00 06/29/20 07:00 Laboratory Results - last 24 hr 06/28/20 11:15: APTT 56.2 H* D 06/28/20 12:44: Activated Clotting Time Cancelled 06/28/20 12:44: Activated Clotting Time 375 H* 06/28/20 18:00: APTT 42.1 H D 06/29/20 01:08: APTT 22.3 L 06/29/20 05:55: WBC 10.3 D, RBC 3.69 L, Hgb 11.8 L, Hct 34.6 L, MCV 93.8, MCH 32.0 H, MCHC 34.1, RDW 12.4, Plt Count 342, MPV 7.5, Neut % (Auto) 70.0, Lymph % (Auto) 22.2, [place] % (Auto) 5.8, Eos % (Auto) 1.6, Baso % (Auto) 0.5, Neut # (Auto) 7.2, Lymph # (Auto) 2.3, [place] # (Auto) 0.6, Eos # (Auto) 0.2, Baso # (Auto) 0.1 06/29/20 05:55: Sodium 137, Potassium 3.9, Chloride 107, Carbon Dioxide 29, Anion Gap 4.9 L, BUN 17, Creatinine 0.80, Estimated Creat Clear 57, Estimated GFR 71, Est GFR ( Amer) 85, Glucose 98, Calcium 8.7 I & O for Last 24 hours: Intake & Output 06/26/20 06/27/20 06/28/2006/29/20 11:59 11:59 11:59 11:59 Intake Total 530 / 530 1480 / 1480 Output Total 700 / 700 Balance 530 / 530 780 / 780 Weight 148 lb 9 oz 156 lb - *Routine HEENT Exam Head: Present: normocephalic Eye: Present: EOMI, PERRL ENT: Present: mucous membranes moist - *Routine Respiratory Exam Present: CTA bilaterally. Absent: accessory muscle use, rales, rhonchi, wheezes - *Routine Cardiovascular Exam Present: RRR. Absent: murmur, gallop, rubs - *Routine Extremities Exam Absent: edema, calf tenderness - *Routine Neurological Exam Present: alert, oriented X3, moving all extremities Progress Note: A&P (1) NSTEMI (non-ST elevated myocardial infarction) Status: Acute Current Visit: Yes (2) Elevated troponin Status: Acute Current Visit: Yes (3) Unstable angina Status: Acute Current Visit: Yes (4) Ischemic cardiomyopathy Status: Acute Current Visit: Yes (5) LV dysfunction Status: Acute Current Visit: Yes (6) Acute systolic CHF (congestive heart failure) Status: Acute Current Visit: Yes Assessment and Plan for All Diagnoses:: 1. Non-ST elevation [place] status post drug-eluting stent placement to LAD. Continue aspirin and Brilinta 2. Ischemic cardiomyopathy with ejection fraction 30% by echocardiogram. Patient is on low-dose PARRIS and beta-camilla as blood pressure tolerates. Will discontinue Lasix and continue Aldactone. 3. Acute systolic congestive heart failure, improved after IV diuretic. 4. Hyperlipidemia, on atorvastatin therapy. Patient ambulate this morning and if blood pressure remains stable then patient could be discharged home later today. Home medication recommendations Lisinopril 2.5 mg daily Metoprolol succinate 12.5 mg daily Aspirin 81 mg daily Brilinta 90 mg twice daily Atorvastatin 40 mg daily Aldactone 25 mg daily Follow-up in our office in 1 week.
--- NOTE | 2020-06-29 08:17 | HMH.ACPN2 ---
Internal Medicine - PN: Subj *Date: 06/29/20 *Time: 08:17 Interval history: Patient states she is feeling well this morning. Her blood pressure has improved with fluids. Her LifeVest is in place. She denies any chest pain or shortness of breath and states she rested fairly well. Exam Vital signs and Labs for Last 24 Hours: Temp Pulse Resp BP Pulse Ox 98.3 F 77 17 95/49 L 94 L 06/29/20 04:00 06/29/20 08:15 06/29/20 08:15 06/29/20 08:15 06/29/20 08:15 Laboratory Results - last 24 hr 06/28/20 11:15: APTT 56.2 H* D 06/28/20 12:44: Activated Clotting Time Cancelled 06/28/20 12:44: Activated Clotting Time 375 H* 06/28/20 18:00: APTT 42.1 H D 06/29/20 01:08: APTT 22.3 L 06/29/20 05:55: WBC 10.3 D, RBC 3.69 L, Hgb 11.8 L, Hct 34.6 L, MCV 93.8, MCH 32.0 H, MCHC 34.1, RDW 12.4, Plt Count 342, MPV 7.5, Neut % (Auto) 70.0, Lymph % (Auto) 22.2, [place] % (Auto) 5.8, Eos % (Auto) 1.6, Baso % (Auto) 0.5, Neut # (Auto) 7.2, Lymph # (Auto) 2.3, [place] # (Auto) 0.6, Eos # (Auto) 0.2, Baso # (Auto) 0.1 06/29/20 05:55: Sodium 137, Potassium 3.9, Chloride 107, Carbon Dioxide 29, Anion Gap 4.9 L, BUN 17, Creatinine 0.80, Estimated Creat Clear 57, Estimated GFR 71, Est GFR ( Amer) 85, Glucose 98, Calcium 8.7 I & O for Last 24 hours: Intake & Output 06/26/20 06/27/20 06/28/20 06/29/20 11:59 11:59 11:59 11:59 Intake Total 530 / 530 1480 / 1480 Output Total 700 / 700 Balance 530 / 530 780 / 780 Weight 148 lb 9 oz 156 lb - Constitutional no acute distress - *Routine Respiratory Exam Present: CTA bilaterally - *Routine Cardiovascular Exam Present: RRR - *Routine Abdominal Exam Present: soft, normoactive bowel sounds. Absent: tenderness - *Routine Extremities Exam Absent: cyanosis, clubbing, edema - *Routine Skin Exam Present: warm. Absent: rash - *Routine Neurological Exam Present: alert, oriented X3 Assessment and Plan (1) NSTEMI (non-ST elevated myocardial infarction) Current visit: Yes Status: Acute Category: Medical Code(s): I21.4 - Non-ST elevation (NSTEMI) myocardial infarction (2) Elevated troponin Current visit: Yes Status: Acute Category: Medical Code(s): R79.89 - Other specified abnormal findings of blood chemistry (3) Unstable angina Current visit: Yes Status: Acute Category: Medical Code(s): I20.0 - Unstable angina (4) Ischemic cardiomyopathy Current visit: Yes Status: Acute Category: Medical Code(s): I25.5 - Ischemic cardiomyopathy (5) LV dysfunction Current visit: Yes Status: Acute Category: Medical Code(s): I51.9 - Heart disease, unspecified (6) Acute systolic CHF (congestive heart failure) Current visit: Yes Status: Acute Category: Medical Code(s): I50.21 - Acute systolic (congestive) heart failure - Assessment and plan all Dx Assessment and Plan for all problems:: LifeVest in place and blood pressure has improved. Cardiology feels patient can be discharged later on today and should follow-up with him in a week.
--- NOTE | 2020-06-29 13:10 | HMH.PHACLD ---
Kay Wolf has received discharge medication counseling on the following medications: PATIENT IS CURRENTLY TAKING METOPROLOL SUCCINATE 12.5 MG DAILY. MD STARTING LISINOPRIL 2.5 MG DAILY, ASPIRIN 81 MG DAILY, BRILINTA 90 MG BID, AND ATORVASTATIN 40 MG HS.
--- NOTE | 2020-06-30 10:15 | HMH.DCSUM ---
General - General Admission date:: 06/27/20 Discharge date: 06/29/20 HPI HPI: This is a 74 year old white female who presented to the ED with chest pain. She states that it feels like something is sitting on her chest. She states that her chest pain started around 6 PM last night. She describes it as a squeezing heavy sensation. She states that this occurs off and on. She states that the pain reoccurred this morning. She states that it is a severe pain and rates it an 8-9 out of 10 in intensity. She states that she does get short of breath and diaphoretic with the chest pain. There is no radiation of the chest pain. Nothing worsens the chest pain. Her chest pain is now a 4-5/10 in intensity. She states that she has never had symptoms like this before and states that she has no health problems until now. She denies hypertension or hyperlipidemia. She denies tobacco use. She does report that her father had heart problems and her sister had an HI at the age of 69. She denies any fever, chills, nausea, vomiting, diarrhea, PND or orthopnea. Hospital Course Hospital Course: The patient had a chest x-ray showed nothing acute. Her troponin I's were elevated x2 and she was seen by cardiology who wanted her admitted overnight and planned a heart cath the next day. She had an echo showing an EF of 30% with grade 1 diastolic dysfunction. Given her severe left ventricular dysfunction, a LifeVest was ordered for the patient. She had the heart cath which showed critical two-vessel coronary disease in the proximal LAD and proximal large ramus intermedius. She had successful stenting to both arteries. Cardiology recommended she be started on Brilinta 90 mg twice daily and 81 mg aspirin daily for a year. They also wanted her to have cardiac rehab and to be started on an PARRIS inhibitor and a beta-camilla once hemodynamically stable. The patient's blood pressure did drop after she was given diuretics, therefore she was given IV fluids overnight with improvement in her blood pressure. She felt much better and was anxious to go home. She was stable to be discharged and will follow up with Dr. Fernandez. Objective Vital signs: Temp Pulse Resp BP Pulse Ox 97.5 F L 70 17 96/45 L 99 06/29/20 11:23 06/29/20 12:38 06/29/20 11:23 06/29/20 11:23 06/29/20 11:23 Narrative: - Constitutional no acute distress Comments: Is comfortable - *Routine HEENT Exam Head: Present: normocephalic, atraumatic Eye: Present: PERRL. Absent: conjunctival icterus, scleral injection ENT: Present: mucous membranes moist. Absent: oropharynx clear - *Routine Respiratory Exam Present: CTA bilaterally (Anteriorly and posteriorly) - *Routine Cardiovascular Exam Present: RRR - *Routine Abdominal Exam Present: soft, normoactive bowel sounds. Absent: tenderness, distended - *Routine Extremities Exam Absent: edema, calf tenderness - *Routine Neurological Exam Present: alert, oriented X3 DS: Diagnosis - Discharge Diagnosis (1) NSTEMI (non-ST elevated myocardial infarction) Status: Acute (2) Elevated troponin Status: Acute (3) Unstable angina Status: Acute (4) Ischemic cardiomyopathy Status: Acute (5) LV dysfunction Status: Acute (6) Acute systolic CHF (congestive heart failure) Status: Acute Discharge Plan - Patient Discharge Instructions ACTIVITY: Limited activity DIET: low fat, low cholesterol Patient Instructions: Heart Attack, Cardiac Catheterization - Follow up Plan Follow up with: Grayson Mcdonnell [Primary Care Provider] - 07/13/20 9:00 am Prashant Fernandez MD [Staff Physician] - 07/10/20 3:00 pm (Please bring all your medication to this appointment.) Disposition: Home, Self-Usp Medications: Home Medications Medication Instructions Recorded Confirmed Type Aspirin [Aspirin 81mg EC Tab] 81 mg PO DAILY tablet. 06/29/20 Rx Atorvastatin Calcium [Lipitor 40mg 40 mg
== END 2020-06-29 14:59 | disposition home or self-care (01) | DRG 246 ==
LOC: ER 13:50 → 2ND 15:04
PROVIDERS: Internal Medicine; Nurse Practitioner Family; Admitting Provider Family Medicine; Emergency Provider Emergency Medicine; PCP Family Medicine; Visit Provider Family Medicine
PROC: 027135Z Dilation of Coronary Artery, Two Arteries with Two Drug-eluting Intraluminal Devices, Percutaneous Approach (ICD-10-PCS; principal; 2020-06-28 12:00)
DX: I21.4 Non-ST elevation (NSTEMI) myocardial infarction (principal); I50.21 Acute systolic (congestive) heart failure; I25.110 Atherosclerotic heart disease of native coronary artery with unstable angina pectoris; J44.9 Chronic obstructive pulmonary disease, unspecified; E11.9 Type 2 diabetes mellitus without complications; E78.5 Hyperlipidemia, unspecified; I25.5 Ischemic cardiomyopathy; Z79.899 Other long term (current) drug therapy; I25.83 Coronary atherosclerosis due to lipid rich plaque
CPT/HCPCS: 36415; 71045; 80048; 80053; 80061; 80076; 83690; 83880; 84484; 85025; 85347; 85730; 87581; 87633; 87798; 92928; 93005; 93306; 93458; 96365; 96367; 96375; 99152; 99153; 99284; C1769; C1876; C9600; J1644; Q9967

== ENCOUNTER → 2020-07-10 14:32 | Outpatient (CLI) | payer MEDICARE, MEDICAID, SELFPAY ==
[2020-07-10 15:10] LABS: Hematocrit 36.4 % (37.0-47.0); Hemoglobin 12.1 g/dL (12.2-16.2)
[2020-07-10 15:17] LABS: Blood Urea Nitrogen 27 mg/dl (7-17); Estimated Glomerular Filt Rate 71 ml/min (>60); GFR (African American) 85 ML/MIN (>60)
== END ==
PROVIDERS: Visit Provider Internal Medicine
DX: I25.10 Atherosclerotic heart disease of native coronary artery without angina pectoris (principal)
CPT/HCPCS: 36415; 82565; 84520; 85014; 85018

== ENCOUNTER → 2020-07-17 10:58 | Outpatient (CLI) | payer MEDICARE, MEDICAID, SELFPAY ==
--- NOTE | 2020-07-17 10:59 | CA_ITS ---
APPROVED REPORT EXAM: Comprehensive 2D, Doppler, and color-flow Echocardiogram Automation Machine Operator: Radha Esparza CRT Ht: 5 ft 6 in Wt: 148lbs BSA: 1.76 BP: 107/31 mmHg Indications: EF CHECK FROM LIFE VEST, PT NOT BEEN WEARING LIFEVEST. M-Mode Dimensions RVDd 2.39 cm (0.9-2.6) LVDd 4.35 cm (3.5-5.7) LVDs 3.43 cm (3.5-5.7) IVSd 1.11 cm (0.6-1.1) PWd 1.03 cm (0.6-1.1) EF (Teich) 43.20% FS 21.10% EDV (Teich) 85.40 mL ESV (Teich) 48.50 mL Left Ventricle Limited study performed to evaluate left ventricular systolic function. Left atrium is mildly enlarged, left ventricle is normal size, mild concentric left ventricular hypertrophy, visually estimated ejection fraction 55% with no regional wall motion abnormality. Right Ventricle Right atrium and right ventricle is normal size and contractility. Aortic Valve Aortic valve is minimally thickened and fibrosed, there is no aortic stenosis Mitral Valve Mitral valve leaflets are minimally thickened, there is no mitral stenosis. Tricuspid Valve Tricuspid valve is grossly normal. Pulmonic Valve Pulmonic valve is poorly visualized. Great Vessels Aortic root is normal size. Pericardium No significant pericardial effusion noted. Conclusion 1. Mildly enlarged left atrium, normal left ventricular size, mild concentric left ventricular hypertrophy, visually estimated ejection fraction 55% with no regional wall motion abnormality. 2. No significant pericardial effusion noted 3. Limited study was performed. Electronically signed by : Memo Elizalde, 07/17/2020 21:09:08
== END ==
PROVIDERS: PCP Family Medicine; Visit Provider Urology
DX: I25.10 Atherosclerotic heart disease of native coronary artery without angina pectoris (principal); E78.5 Hyperlipidemia, unspecified; I10 Essential (primary) hypertension; I25.5 Ischemic cardiomyopathy; I51.9 Heart disease, unspecified; [UNRECOGNIZED DIAGNOSIS CODE]
CPT/HCPCS: 93308

== ENCOUNTER → 2020-10-25 10:38 | Outpatient (CLI) | payer MEDICARE, MEDICAID, SELFPAY ==
--- NOTE | 2020-10-25 10:39 | CA_ITS ---
APPROVED REPORT Cradle Placer: Elli Garg RT(R) Laterality: Bilateral Indications: bilateral carotid bruits, SOB Doppler Spectral Velocity Analysis ECA (R) 107.70/11.20 cm/s ECA (L) 87.10/11.80 cm/s dICA (R) 83.80/26.90 cm/s dICA (L) 80.70/31.00 cm/s Tod (R) 107.70/32.90 cm/s Tod (L) 85.00/31.50 cm/s pICA (R) 107.70/36.70 cm/s pICA (L) 72.20/27.80 cm/s dCCA (R) 65.20/17.60 cm/s dCCA (L) 78.10/20.90 cm/s pCCA (R) 81.30/13.90 cm/s pCCA (L) 77.50/20.90 cm/s Vert (R) 54.50/18.70 cm/s Vert (L) 73.80/21.40 cm/s ICA/CCA 1.65 ICA/CCA 1.09 Findings Duplex evaluation demonstrates stenosis of the right proximal internal carotid artery <20% with PSV <140 cm/sec, EDV <100 cm/sec, and IC/CC Ratio <4.0 Duplex evaluation demonstrates stenosis of the left proximal internal carotid artery <20% with PSV <140 cm/sec, EDV <100 cm/sec, and IC/CC Ratio <4.0. Conclusion Duplex evaluation demonstrates stenosis of the right proximal internal carotid artery <20% with PSV <140 cm/sec, EDV <100 cm/sec, and IC/CC Ratio <4.0 Duplex evaluation demonstrates stenosis of the left proximal internal carotid artery <20% with PSV <140 cm/sec, EDV <100 cm/sec, and IC/CC Ratio <4.0. Electronically signed by : Josh Sewell MD 10/25/2020 18:03:07
== END ==
PROVIDERS: PCP Family Medicine; Visit Provider Physician Assistant
DX: R09.89 Other specified symptoms and signs involving the circulatory and respiratory systems (principal)
CPT/HCPCS: 93880

== ENCOUNTER 2020-12-07 13:03 | Emergency (ER) | payer MEDICARE, MEDICAID, SELFPAY ==
[2020-12-07] VITALS (8 sets, daily range): BP systolic 101–134; BP diastolic 42–69; PULSE 57–68; RESP 18; TEMP 36.6; O2SAT 94–99; BMI 26.5
--- NOTE | 2020-12-07 14:13 | PC.NURSE ---
Attempted to have patient urinate. Patient states she is unable to at this time.
[2020-12-07 14:15] LABS: Chloride 102 mmol/L (98-107); Potassium 4.1 mmoL/L (3.5-5.1); Sodium 137 mmol/L (136-145)
[2020-12-07 14:18] LABS: Alanine Aminotransferase 15 U/L (12-78); Albumin Level 4.2 g/dl (3.5-5.0); Albumin/Globulin Ratio 1.2 (1.1-1.8); Alkaline Phosphatase 94 U/L (38-126); Anion Gap 11.1 mEq/L (5-15); Aspartate Amino Transferase 30 U/L (14-36); Bilirubin,Total 1.1 mg/dl (0.2-1.3); Blood Urea Nitrogen 19 mg/dl (7-17); Calcium 9.3 mg/dl (8.4-10.2); Carbon Dioxide 28 mmol/L (22.0-30.0); Creatinine Clearance Estimated 54 mL/min (50-200); Estimated Glomerular Filt Rate 61 ml/min (>60); GFR (African American) 74 ML/MIN (>60); Globulin 3.5 g/dL (1.3-3.2); Glucose 116 mg/dl (74-100); Total Protein,Serum 7.7 g/dl (6.3-8.2)
[2020-12-07 14:27] LABS: Basophils % 0.5 % (0.1-2.0); Eosinophils % 0.2 % (0.1-12.0); Hematocrit 36.5 % (37.0-47.0); Hemoglobin 12.1 g/dL (12.2-16.2); Lymphocytes # 1.3 K/mm3 (0.7-4.5); Lymphocytes % 21.7 % (10-50); Mean Corpuscular HGB Conc 33.2 g/dL (31.8-35.4); Mean Corpuscular Hemoglobin 30.7 pg (27.0-31.2); Mean Corpuscular Volume 92.5 fl (81-99); Mean Platelet Volume 7.6 fl (7.4-10.4); Monocytes # 0.5 K/mm3 (0.1-1.0); Monocytes % 8.3 % (1.7-9.3); Neutrophils # 4.1 K/mm3 (1.8-7.8); Neutrophils % 69.3 % (37.0-80.0); Platelet Count 326 K/mm3 (142-424); Red Blood Count 3.94 M/mm3 (4.20-5.40); Red Cell Distribution Width 13.4 % (11.5-17.5)
--- NOTE | 2020-12-07 14:29 | HMH.EDGENADL ---
ED Disposition Clinical Impression: Dehydration Fatigue Qualifiers: Fatigue type: other Qualified Code(s): R53.83 - Other fatigue Disposition: Home, Self-Care Condition on Discharge: Good Referrals: Grayson Mcdonnell [Primary Care Provider] - 3 days - Critical Care Critical Care Time: No Attestation: On 12/07/20, the high probability of a clinically significant, sudden or life threatening deterioration of the following system(s) required my full and direct attention, intervention and personal management. The time I documented below is in addition to time spent performing reported procedures but includes the following listed in this critical care notation. Medical Decision Making - Medical Records Medical records reviewed: Yes: I reviewed the patient's medical records. - Sushil Inquiry Pt receiving controlled substance: No Vital Signs: 12/07/20 13:20 12/07/20 14:05 12/07/20 14:30 Temperature 97.8 F Temperature Source Oral Pulse Rate [Right Radial] 68 64 60 Respiratory Rate 18 Blood Pressure [Right Arm] 134/55 L 104/42 L 101/47 L Blood Pressure Mean [Right Arm] 81 62 65 Blood Pressure Source [Right Arm] Automatic Cuff Automatic Cuff Automatic Cuff Blood Pressure Position [Right Arm] Sitting Sitting Sitting 02 Sat by Pulse Oximetry 97 94 L 95 Oxygen Delivery Method Room Air Room Air Room Air 12/07/20 15:00 12/07/20 15:58 Temperature Temperature Source Pulse Rate [Right Radial] 62 57 L Respiratory Rate Blood Pressure [Right Arm] 111/57 L 118/52 L Blood Pressure Mean [Right Arm] 75 74 Blood Pressure Source [Right Arm] Automatic Cuff Automatic Cuff Blood Pressure Position [Right Arm] Sitting Sitting 02 Sat by Pulse Oximetry 97 95 Oxygen Delivery Method Room Air Room Air - Lab Data Lab Results 12/07/20 14:01: WBC 6.0, RBC 3.94 L, Hgb 12.1 L, Hct 36.5 L, MCV 92.5, MCH 30.7, MCHC 33.2, RDW 13.4, Plt Count 326, MPV 7.6, Neut % (Auto) 69.3, Lymph % (Auto) 21.7, [place] % (Auto) 8.3, Eos % (Auto) 0.2, Baso % (Auto) 0.5, Neut # (Auto) 4.1, Lymph # (Auto) 1.3, [place] # (Auto) 0.5, Eos # (Auto) 0.0, Baso # (Auto) 0.0 12/07/20 14:01: Sodium 137, Potassium 4.1, Chloride 102, Carbon Dioxide 28, Anion Gap 11.1, BUN 19 H, Creatinine 0.90, Estimated Creat Clear 54, Estimated GFR 61, Est GFR ( Amer) 74, Glucose 116 H, Calcium 9.3, Total Bilirubin 1.1, AST 30, ALT 15, Alkaline Phosphatase 94, Total Protein 7.7, Albumin 4.2, Globulin 3.5 H, Albumin/Globulin Ratio 1.2 12/07/20 14:01: NT-Pro-B Natriuret Pep 194 H 12/07/20 15:44: Urine Color Dk yellow, Urine Appearance Clear, Urine pH 5.5, Ur Specific [place] >= 1.030, Urine Protein Trace, Urine Glucose (UA) Negative, Urine Ketones Negative, Urine Blood Negative, Urine Nitrate Negative, Urine Bilirubin Negative, Urine Urobilinogen 0.2, Ur Leukocyte Esterase Negative Result diagrams: 12/07/20 14:01 12/07/20 14:01 Orders (Tests/Meds): ED MEDICATIONS Generic Name Dose Route Start Last Admin Trade Name Freq PRN Reason Stop Dose Admin Sodium Chloride 500 mls @ 500 mls/hr 12/07/20 16:15 Sod Chlor 0.9% 500ml Bag IV 01/06/21 16:14 .Q1H [facility] ORDERS Category Date Time Status Covid-19 Nasal PCR ([facility]) Routine Lab 12/07/20 16:05 Ordered UA [Urinalysis and Microscopic] Stat Lab 12/07/20 15:44 Results Medical Decision Narrative: 75yo F evaluated for dysuria and malaise. PCP office was contacted but they did not send urine for culture. CBC, CMP are unremarkable. Urinalysis shows concentrated urine without leukoesterase or nitrite. Patient be instructed not to take her Bactrim as it does not appear that she has a bacterial infection. Patient was treated with normal saline 500 mL as she has a history of heart failure. Patient was also swabbed for coronavirus given her recent sick contact history. Otherwise she is appropriate and stable for discharge home at this time. Instructed to follow-up with PCP on Thursday. General Adult HPI - Genera
[2020-12-07 15:20] LABS: NT Pro Brain Natriuretic Pep. 194 pg/mL (0-125)
--- NOTE | 2020-12-07 15:45 | PC.NURSE ---
pt taken to restroom at this time.
--- NOTE | 2020-12-07 15:51 | PC.NURSE ---
pt back to room at this time.
[2020-12-07 15:54] LABS: Microscopic, Urine URINE MICROSCOPIC (MICROSCOPIC)
[2020-12-07 15:56] LABS: Appearance,Urine CLEAR (Clear); Bilirubin,Urine Negative (Negative); Blood, Urine Negative (Negative); Color,Urine DK YELLOW (Yellow); Glucose,Urine (UA) Negative (Negative); Ketones,Urine Negative (Negative); Leukocyte Esterase,Urine Negative (Negative); Nitrate,Urine Negative (Negative); PH,Urine 5.5 (5.0-8.5); Protein,Urine TRACE (Negative); Specific Gravity, Urine >= 1.030 (1.005-1.030); Urobilinogen,Urine 0.2 EU/dl (0.2)
[2020-12-07 16:07] LABS: Fine Granular Casts,Urine Occasional #/lpf (0); WBC,Urine Occasional #/hpf (0-3)
--- NOTE | 2020-12-07 22:09 | PC.NURSE ---
called and left voicemail to call back
== END 2020-12-07 17:17 | disposition home or self-care (01) ==
PROVIDERS: Emergency Provider Family Medicine; PCP Family Medicine
DX: U07.1 COVID-19 (principal); E86.0 Dehydration; N30.00 Acute cystitis without hematuria; E78.5 Hyperlipidemia, unspecified; I10 Essential (primary) hypertension; I25.2 Old myocardial infarction; Z79.899 Other long term (current) drug therapy; I50.9 Heart failure, unspecified; I25.10 Atherosclerotic heart disease of native coronary artery without angina pectoris
CPT/HCPCS: 80053; 81001; 83880; 85025; 96365; 99283; U0003

== ENCOUNTER 2021-01-02 11:30 | Emergency (ER) | payer MEDICARE, MEDICAID, SELFPAY ==
--- NOTE | 2021-01-02 11:35 | HMH.EDGIBL ---
ED Disposition Clinical Impression: Colitis, Pancreatic abnormality Disposition: Home, Self-Care Condition on Discharge: Good Additional Instructions: Return to the emergency department for fever, worsening abdominal pain, increased blood passage. Follow-up with your PCP regarding the abnormality found on your pancreas. You will likely need additional imaging in the future. Referrals: Grayson Mcdonnell [Primary Care Provider] - 3 days Time of Disposition: 14:36 - Critical Care Critical Care Time: No Attestation: On , the high probability of a clinically significant, sudden or life threatening deterioration of the following system(s) required my full and direct attention, intervention and personal management. The time I documented below is in addition to time spent performing reported procedures but includes the following listed in this critical care notation. Medical Decision Making - Medical Records Medical records reviewed: Yes: I reviewed the patient's medical records. - Sushil Inquiry Pt receiving controlled substance: No Vital Signs: 01/02/21 11:37 01/02/21 12:24 Temperature 98.0 F Temperature Source Oral Pulse Rate [Right Radial] 106 H 80 Respiratory Rate 18 Blood Pressure [Right Arm] 129/78 123/77 Blood Pressure Mean [Right Arm] 95 92 Blood Pressure Source [Right Arm] Automatic Cuff Automatic Cuff Blood Pressure Position [Right Arm] Sitting Sitting 02 Sat by Pulse Oximetry 97 96 Oxygen Delivery Method Room Air Room Air - Lab Data Lab results reviewed: Yes: I reviewed the patient's lab results. Lab Results 01/02/21 12:10: WBC 15.8 H, RBC 4.07 L, Hgb 12.5, Hct 38.6, MCV 94.9, MCH 30.8, MCHC 32.5, RDW 14.1, Plt Count 382, MPV 7.3 L, Neut % (Auto) 80.6 H, Lymph % (Auto) 12.3, [place] % (Auto) 6.2, Eos % (Auto) 0.6, Baso % (Auto) 0.4, Neut # (Auto) 12.7 H, Lymph # (Auto) 1.9, [place] # (Auto) 1.0, Eos # (Auto) 0.1, Baso # (Auto) 0.1, Total Counted 100, Neutrophils % (Manual) 78 H, Lymphocytes % (Manual) 14, Atypical Lymphs % 3.0, Monocytes % (Manual) 5, Platelet Estimate Normal, Rouleaux 1+ 01/02/21 12:10: Sodium 137, Potassium 4.3, Chloride 104, Carbon Dioxide 26, Anion Gap 11.3, BUN 22 H, Creatinine 0.90, Estimated Creat Clear 53, Estimated GFR 61, Est GFR ( Amer) 74, Glucose 121 H, Calcium 9.8, Total Bilirubin 2.0 H, AST 29, ALT 18, Alkaline Phosphatase 103, Total Protein 8.2, Albumin 4.4, Globulin 3.8 H, Albumin/Globulin Ratio 1.2 01/02/21 12:10: Stool Occult Blood Positive A Result diagrams: 01/02/21 12:10 01/02/21 12:10 Orders (Tests/Meds): ED MEDICATIONS Discontinued Medications Generic Name Dose Route Start Last Admin Trade Name Ian PRN Reason Stop Dose Admin Iopamidol 75 ml 01/02/21 13:31 01/02/21 13:32 Iopamidol-370 (76%);100ml Bottle IV 01/02/21 13:32 75 ml ONCE ONE Administration Sodium Chloride 10 ml 01/02/21 13:31 01/02/21 13:32 Sodium Chloride 0.9% 10ml Syr (Rad Only) IV 01/02/21 13:32 10 ml ONCE ONE Administration - CT Data CT Scan: Abdomen Time Received: 14:[address] Reviewed: Yes: I have reviewed the patient's CT results Preliminary Findings: Abnormal Findings Narrative: Consistent with colitis, question pseudomembranous colitis Also noted to possibly have a lesion to her pancreas. Medical Decision Narrative: 75yo F evaluated for bright red blood per rectum. Patient is in no acute distress on initial evaluation. Differential diagnosis includes was not limited to: Hemorrhoids, anal fissure, diverticulosis, colitis, acute lower GI bleed, ulcerative colitis, Crohn's disease. CBC, CMP are ordered. CBC results with a white count of 15. Otherwise blood work is unremarkable. Patient was sent for CT of the abdomen pelvis with IV contrast. CT reveals colitis and question pseudomembranous colitis. Patient denies diarrhea making C. difficile less likely. She has had no recent antibiotic course. She denies fever or significant pain. Her white
[2021-01-02 11:37] VITALS: BP 129/78; PULSE 106; RESP 18; TEMP 36.7; O2SAT 97; BMI 23.7
[2021-01-02 12:21] LABS: Basophils # 0.1 K/mm3 (0-0.2); Basophils % 0.4 % (0.1-2.0); Eosinophils # 0.1 K/mm3 (0.0-0.4); Eosinophils % 0.6 % (0.1-12.0); Hematocrit 38.6 % (37.0-47.0); Hemoglobin 12.5 g/dL (12.2-16.2); Lymphocytes # 1.9 K/mm3 (0.7-4.5); Lymphocytes % 12.3 % (10-50); Mean Corpuscular HGB Conc 32.5 g/dL (31.8-35.4); Mean Corpuscular Hemoglobin 30.8 pg (27.0-31.2); Mean Corpuscular Volume 94.9 fl (81-99); Mean Platelet Volume 7.3 fl (7.4-10.4); Monocytes % 6.2 % (1.7-9.3); Neutrophils # 12.7 K/mm3 (1.8-7.8); Neutrophils % 80.6 % (37.0-80.0); Platelet Count 382 K/mm3 (142-424); Red Blood Count 4.07 M/mm3 (4.20-5.40); Red Cell Distribution Width 14.1 % (11.5-17.5); White Blood Count 15.8 K/mm3 (4.8-10.8)
[2021-01-02 12:23] LABS: Occult Blood,Stool Positive (Negative)
[2021-01-02 12:24] VITALS: BP 123/77; PULSE 80; O2SAT 96
[2021-01-02 12:25] LABS: Chloride 104 mmol/L (98-107); MANUAL DIFFERENTIAL MANUAL DIFFERENTIAL (MANUAL DIFF); Potassium 4.3 mmoL/L (3.5-5.1); Sodium 137 mmol/L (136-145)
[2021-01-02 12:28] LABS: Alanine Aminotransferase 18 U/L (12-78); Albumin Level 4.4 g/dl (3.5-5.0); Albumin/Globulin Ratio 1.2 (1.1-1.8); Alkaline Phosphatase 103 U/L (38-126); Anion Gap 11.3 mEq/L (5-15); Aspartate Amino Transferase 29 U/L (14-36); Blood Urea Nitrogen 22 mg/dl (7-17); Calcium 9.8 mg/dl (8.4-10.2); Carbon Dioxide 26 mmol/L (22.0-30.0); Creatinine Clearance Estimated 53 mL/min (50-200); Estimated Glomerular Filt Rate 61 ml/min (>60); GFR (African American) 74 ML/MIN (>60); Globulin 3.8 g/dL (1.3-3.2); Glucose 121 mg/dl (74-100); Total Protein,Serum 8.2 g/dl (6.3-8.2)
[2021-01-02 12:37] LABS: Lymphocytes % 14 % (10-50); Monocytes % 5 % (2-9); Neutrophils % 78 % (42-76); Total Cells Counted 100
[2021-01-02 12:38] LABS: Platelet Estimate Normal; Rouleaux 1+
--- NOTE | 2021-01-02 12:46 | CT_ITS ---
PROCEDURE: CT ABDOMEN PELVIS W CON CLINICAL INDICATION: GIB, WBC 15 Elevated white blood cell count with bloody stool COMPARISON: No exams were available for comparison TECHNIQUE: IV Contrast: 75ML Isovue 370 Oral Contrast None Axial images obtained with sagittal and coronal reformats. All CT scans at the facility use one or more dose reduction, viz: automated exposure control, ma/kV adjustment per patient size (including targeted exams where dose is matched to indication, i.e. head), or iterative reconstruction technique. FINDINGS: LOWER THORAX: There are a few faint ground-glass opacities in the right lower lobe posteriorly within the superior segment of the right lower lobe the largest measuring 8 mm. These are nonspecific. Areas of ground-glass attenuation also noted in the left lower lobe. Coronary artery calcifications are present. ABDOMEN & PELVIS: Within the hepatic dome there is a area of coarse calcification. There are 2 small cystic areas also in the patent dome anterior to the IVC measuring 3 and 5 mm. 5 mm hypodensity is present in the right hepatic lobe anteriorly and in the medial aspect of the left hepatic lobe. This may be due to small cyst. Additional hypodensity is present in the right hepatic lobe inferiorly at 6 mm. There is a small hiatal hernia. The spleen, adrenal glands, and pancreas have an unremarkable appearance. There are some nonspecific low-density changes in the head of the pancreas which are not well-defined. No biliary ductal dilatation. There has been a prior cholecystectomy. No renal or ureteral calculi. There are small bilateral peripelvic renal cysts. No evidence of appendicitis. No evidence of small-bowel obstruction. There is severe mucosal thickening of the transverse colon with minimal haziness of the pericolic fat. No evidence of pneumatosis coli. The transverse colon actually dips down into the pelvic region. There is a small amount of fluid in the pelvis.. There are few diverticula of the sigmoid colon. No evidence of diverticulitis. There are degenerative changes in the lumbar spine with degenerative disc disease. There is mild kyphosis at the L1-L2 level. A lucent lesion involves the L5 vertebral body centrally and superiorly at 9 mm. IMPRESSION: 1. Severe thickening of the transverse colon consistent with colitis. Pseudomembranous colitis is a consideration. No evidence of pneumatosis. 2. Small amount of fluid in the pelvis. There is some colonic diverticulosis but no evidence of diverticulitis. 3. Vague low-density changes in the head of the pancreas. This could be due to some edema from mild pancreatitis. Nonemergent follow-up with MRI with pancreatic protocol suggested for further evaluation as a neoplastic process is not excluded. 4. Multiple small hepatic cysts 5. Patchy areas of ground-glass attenuation in both lower lobes of the lungs nonspecific. Infiltrate/inflammatory changes considered Dictated by: Josh Sewell MD 01/02/2021 14:14 Josh Sewell MD in [place] 01/02/2021 14:14
[2021-01-02 13:00] VITALS: BP 127/73; PULSE 79; O2SAT 96
--- NOTE | 2021-01-02 13:10 | PC.NURSE ---
pt in CT
[2021-01-02 14:00] VITALS: BP 140/76; PULSE 78; O2SAT 98
[2021-01-02 14:30] VITALS: BP 136/77; PULSE 83; O2SAT 100
[2021-01-02 15:08] VITALS: BP 122/62; PULSE 89; RESP 18; TEMP 36.7; O2SAT 96
== END 2021-01-02 15:08 | disposition home or self-care (01) ==
PROVIDERS: Emergency Provider Family Medicine; PCP Family Medicine
DX: K52.9 Noninfective gastroenteritis and colitis, unspecified (principal); I25.10 Atherosclerotic heart disease of native coronary artery without angina pectoris; I10 Essential (primary) hypertension; E78.5 Hyperlipidemia, unspecified; I25.2 Old myocardial infarction; Z79.899 Other long term (current) drug therapy
CPT/HCPCS: 74177; 80053; 82272; 85007; 85025; 99284; G0328; Q9967

== ENCOUNTER → 2021-01-29 08:30 | Outpatient (CLI) | payer MEDICARE, MEDICAID, SELFPAY | PROVIDERS: PCP Family Medicine; Visit Provider Family Medicine | DX: K86.9 Disease of pancreas, unspecified (principal) ==

== ENCOUNTER → 2021-02-01 08:30 | Outpatient (CLI) | payer MEDICARE, MEDICAID, SELFPAY ==
--- NOTE | 2021-02-01 08:41 | MR_ITS ---
PROCEDURE: MR ABDOMEN WO/W CON CLINICAL INDICATION: POSSIBLE PANCREATIC MASS Vague low-density changes in the head of the pancreas seen on prior CT done 01/02/2021. Pancreatic mass protocol recommended. 14 ml prohance used for contrast Lot #[id number] exp:01/2023 bun:22 creat:0.9 gfr:61 COMPARISON: CT CT ABDOMEN PELVIS W CON from 01/02/2021 TECHNIQUE: Routine multiplanar multi echo sequences are performed without and with gadolinium enhancement. MRCP images also performed FINDINGS: There are scattered hepatic cysts as well as renal cysts. The adrenal glands have an unremarkable. No definite pancreatic mass evident. Heterogeneous signal intensity noted in the pancreatic head as seen on the CT scan and may only be related to fatty infiltration. There has been a prior cholecystectomy. There is mild ectasia the biliary tree. The common hepatic duct measures approximately 9 mm and common bile duct 7 mm. Pancreatic duct has an unremarkable appearance. No common duct stones evident. There is a mildly prominent cystic duct. IMPRESSION: No definite pancreatic mass. Heterogeneous intensity in the head of the pancreas may be due to fatty infiltration. Consider 3 to six-month CT follow-up with pancreatic protocol. Dictated by: Josh Sewell MD 02/04/2021 11:15 Josh Sewell MD in [place] 02/04/2021 11:15
[2021-02-01 08:59] LABS: Chloride 105 mmol/L (98-107); Sodium 140 mmol/L (136-145)
[2021-02-01 09:00] LABS: Potassium 5.3 mmoL/L (3.5-5.1)
[2021-02-01 09:02] LABS: Alanine Aminotransferase 14 U/L (12-78); Albumin Level 4.5 g/dl (3.5-5.0); Albumin/Globulin Ratio 1.2 (1.1-1.8); Alkaline Phosphatase 98 U/L (38-126); Anion Gap 11.3 mEq/L (5-15); Aspartate Amino Transferase 26 U/L (14-36); Bilirubin,Total 0.9 mg/dl (0.2-1.3); Blood Urea Nitrogen 23 mg/dl (7-17); Carbon Dioxide 29 mmol/L (22.0-30.0); Estimated Glomerular Filt Rate 70 ml/min (>60); GFR (African American) 85 ML/MIN (>60); Globulin 3.8 g/dL (1.3-3.2); Total Protein,Serum 8.3 g/dl (6.3-8.2)
[2021-02-01 09:03] LABS: Calcium 10.1 mg/dl (8.4-10.2); Glucose 112 mg/dl (74-100)
== END ==
PROVIDERS: PCP Family Medicine; Visit Provider Family Medicine
DX: R19.02 Left upper quadrant abdominal swelling, mass and lump (principal)
CPT/HCPCS: 36415; 74183; 76376; 80053; A9576

== ENCOUNTER 2021-03-14 13:18 | Observation (INO) | payer MEDICARE, MEDICAID, SELFPAY ==
[2021-03-14] VITALS (13 sets, daily range): BP systolic 87–166; BP diastolic 51–86; PULSE 57–80; RESP 16–20; TEMP 36.6–37.1; O2SAT 94–99; BMI 24.3; BMI 23.3
--- NOTE | 2021-03-14 13:13 | ECG_ITS ---
APPROVED REPORT Exam: Resting ECG HR:67 bpm ECG Measurements Heart Rate 67 AXES [place] 192 P 55 QRSd 82 QRS 44 QT 394 T 44 QTc 416 Conclusion Normal sinus rhythm Normal ECG Electronically signed by : Dre Lewis, 03/15/2021 19:10:58
--- NOTE | 2021-03-14 13:22 | HMH.EDGENADL ---
ED Disposition Clinical Impression: Angina pectoris Disposition: Admitted as Observation Condition on Discharge: Good Referrals: Grayson Mcdonnell [Primary Care Provider] - - Critical Care Critical Care Time: No Attestation: On , the high probability of a clinically significant, sudden or life threatening deterioration of the following system(s) required my full and direct attention, intervention and personal management. The time I documented below is in addition to time spent performing reported procedures but includes the following listed in this critical care notation. Medical Decision Making - Medical Records Medical records reviewed: Yes: I reviewed the patient's medical records. MR Comment: Reviewed record, non-ST elevation in June 2020. See left heart cath report and echocardiogram report below. - Sushil Inquiry Pt receiving controlled substance: No Vital Signs: 03/14/21 13:19 03/14/21 13:36 03/14/21 13:44 Temperature 97.9 F Temperature Source Oral Pulse Rate 72 80 Pulse Rate [Radial] 75 Respiratory Rate 16 16 16 Blood Pressure 139/63 94/62 L Blood Pressure [Right Arm] 166/86 H Blood Pressure Mean [Right Arm] 112 Blood Pressure Position Sitting Sitting Blood Pressure Position [Right Arm] Sitting 02 Sat by Pulse Oximetry 98 98 94 L Oxygen Delivery Method Room Air Room Air Room Air 03/14/21 13:47 03/14/21 14:00 Temperature Temperature Source Pulse Rate 77 64 Pulse Rate [Radial] Respiratory Rate 16 16 Blood Pressure 105/55 L 104/59 L Blood Pressure [Right Arm] Blood Pressure Mean [Right Arm] Blood Pressure Position Sitting Sitting Blood Pressure Position [Right Arm] 02 Sat by Pulse Oximetry 94 L 96 Oxygen Delivery Method Room Air - Lab Data Lab Results 03/14/21 13:20: WBC 8.5, RBC 4.01 L, Hgb 12.1 L, Hct 38.1, MCV 95.1, MCH 30.2, MCHC 31.8, RDW 12.7, Plt Count 365, MPV 7.3 L, Neut % (Auto) 64.4, Lymph % (Auto) 23.5, [place] % (Auto) 7.3, Eos % (Auto) 3.8, Baso % (Auto) 1.0, Neut # (Auto) 5.5, Lymph # (Auto) 2.0, [place] # (Auto) 0.6, Eos # (Auto) 0.3, Baso # (Auto) 0.1 03/14/21 13:20: Sodium 137, Potassium 4.7, Chloride 103, Carbon Dioxide 25, Anion Gap 13.7, BUN 25 H, Creatinine 0.80, Estimated Creat Clear 52, Estimated GFR 70, Est GFR ( Amer) 85, Glucose 104 H, Calcium 9.8, Troponin I < 0.01 Result diagrams: 03/14/21 13:20 03/14/21 13:20 Orders (Tests/Meds): ED MEDICATIONS Discontinued Medications Generic Name Dose Route Start Last Admin Trade Name Alconq PRN Reason Stop Dose Admin Aspirin 243 mg 03/14/21 13:25 03/14/21 13:34 Aspirin 81mg Chewable Tablet PO 03/14/21 13:26 243 mg ONCE ONE Administration Nitroglycerin 0.4 mg 03/14/21 13:39 03/14/21 13:38 Nitroglycerin 0.4mg Sl Tablet SL 03/14/21 13:40 0.4 mg ONCE ONE Administration Nitroglycerin 0.5 gm 03/14/21 13:46 03/14/21 13:48 Nitroglycerin 1 Gm Ointment TD 03/14/21 13:47 0.5 gm ONCE ONE Administration ORDERS Category Date Time Status Consult to Cardiology [CONS] Routine Cons 03/14/21 13:59 Active XR chest portable Stat Exams 03/14/21 13:25 Taken Full Resp Panel w/COVID ([facility]) Routine Lab 03/14/21 13:52 Received Troponin I Q3H Lab 03/14/21 16:30 Ordered Troponin I Q3H Lab 03/14/21 19:30 Ordered - Radiology Data #1 Image(s): Chest Image Reviewed: Yes I reviewed the patient's radiology image Chest x-ray: No infiltrate, pneumothorax, pleural effusion, or wide mediastinum. - ECG Data Tracing #1 EKG interpreted by Jaswant Garcia MD: Rhythm: sinus Rate: 67 [place]: normal Ectopy: none Conduction: normal ST Segment Changes: none T Wave Changes: none Q Waves: none No evidence of acute ischemia or injury Normal electrocardiogram - Physician Consults Physician Consulted: TANVIR Gallegos, for Dr. Fernandez Time: 14:01 Reason -: Cardiology Eval/Care Comment/Response: Requests echo. Recommends admission, probable left hear
--- NOTE | 2021-03-14 13:25 | XR_ITS ---
PROCEDURE: XR CHEST PORTABLE CLINICAL HISTORY: CHEST PAIN COMPARISON: CR XR CHEST PORTABLE from 06/27/2020 FINDINGS: The cardiomediastinal silhouette and pulmonary vascularity are within normal limits. The lungs are clear without infiltrates, suspicious nodules, or pleural effusions. No acute bony abnormalities. IMPRESSION: No acute findings. Dictated by: Josh Sewell MD 03/14/2021 14:09 Josh Sewell MD in [place] 03/14/2021 14:09
[2021-03-14 13:32] LABS: Basophils # 0.1 K/mm3 (0-0.2); Eosinophils # 0.3 K/mm3 (0.0-0.4); Eosinophils % 3.8 % (0.1-12.0); Hematocrit 38.1 % (37.0-47.0); Hemoglobin 12.1 g/dL (12.2-16.2); Lymphocytes % 23.5 % (10-50); Mean Corpuscular HGB Conc 31.8 g/dL (31.8-35.4); Mean Corpuscular Hemoglobin 30.2 pg (27.0-31.2); Mean Corpuscular Volume 95.1 fl (81-99); Mean Platelet Volume 7.3 fl (7.4-10.4); Monocytes # 0.6 K/mm3 (0.1-1.0); Monocytes % 7.3 % (1.7-9.3); Neutrophils # 5.5 K/mm3 (1.8-7.8); Neutrophils % 64.4 % (37.0-80.0); Platelet Count 365 K/mm3 (142-424); Red Blood Count 4.01 M/mm3 (4.20-5.40); Red Cell Distribution Width 12.7 % (11.5-17.5); White Blood Count 8.5 K/mm3 (4.8-10.8)
[2021-03-14 13:34] LABS: Chloride 103 mmol/L (98-107); Potassium 4.7 mmoL/L (3.5-5.1); Sodium 137 mmol/L (136-145)
[2021-03-14 13:37] LABS: Blood Urea Nitrogen 25 mg/dl (7-17); Creatinine Clearance Estimated 52 mL/min (50-200); Estimated Glomerular Filt Rate 70 ml/min (>60); GFR (African American) 85 ML/MIN (>60)
[2021-03-14 13:38] LABS: Anion Gap 13.7 mEq/L (5-15); Calcium 9.8 mg/dl (8.4-10.2); Carbon Dioxide 25 mmol/L (22.0-30.0); Glucose 104 mg/dl (74-100)
--- NOTE | 2021-03-14 13:49 | PC.NURSE ---
Cindy Sifuentes with cardiology in with ptJosé Miguel
[2021-03-14 13:52] LABS: Troponin I < 0.01 ng/ml (0.00-0.034)
--- NOTE | 2021-03-14 13:59 | CA_ITS ---
APPROVED REPORT EXAM: Comprehensive 2D, Doppler, and color-flow Echocardiogram Air Box Tester: Shilpa Lozano, RCS, RVS Ht: 5 ft 3 in Wt: 146lbs BSA: 1.69 HR: 61 bpm BP: 94/62 mmHg Indications: CP, CAD-OLD CA with 2 coronary stents, HTN, HLD 2D Dimensions IVSd 1.15 cm LVEF (Visual) 60.20 % PWd 0.84 cm LA Volume 37.40 mL LVDd 4.59 cm LA Volume Index 22.10 mL/m2 (M/F) 16-34 LVDs 3.12 cm Aortic Root 2.67 cm Left Atrium 3.35 cm LVOT 2.07 cm (M/F) 1.5-2.5 M-Mode Dimensions LA Diam 2.93 cm (1.9-4.0) LVDd 5.42 cm (3.5-5.7) Ao Diam 3.20 cm (2.0-3.7) LVDs 3.29 cm (3.5-5.7) EF (Teich) 69.30% FS 39.30% EDV (Teich) 142.50 mL TAPSE 2.22 (<1.7) ESV (Teich) 43.80 mL LV Diastology E Decel Time 357.00 (160-240 msec) E/A Ratio 0.74 MED E' 4.80 (< 7 cm/sec) MED A' 8.80 cm/s E'/MED E' Ratio 11.52 (>14) LAT E' 7.30 (<10 cm/sec) LAT A' 12.10 cm/s E/LAT E' Ratio 7.58 (>14) Aortic Valve LVOT Max 85.00 (70-110 cm/s) LVOT VTI 19.10 cm AO Peak GR. 4.80 mmHg Mitral Valve MV E Max Ciro. 55.00 (40-130 cm/s) MV A Velocity 74.00 (40-130 cm/s) E/A Ratio 0.74 MV Decel. Time 357.00 (160-240 ms) MV PHT 104.00 ms Pulmonary Valve PV Peak Velocity 68.00 (50-150 cm/s) NM End VMAX 82.00 cm/s Tricuspid Valve TR P. Velocity 151.00 cm/s Left Ventricle Left atrium is mildly enlarged, left ventricle is normal size, mild concentric left ventricular hypertrophy, visually estimated ejection fraction 50% with no regional wall motion abnormality, endocardial surfaces are somewhat poorly visualized. Grade 1 diastolic dysfunction seen without tissue Doppler evidence of raise left atrial pressure. Right Ventricle Right atrium and right ventricle are normal size and contractility. Aortic Valve Aortic valve is minimally thickened and fibrosed without evidence of aortic stenosis or aortic insufficiency. Mitral Valve Mitral valve grossly normal, there is mild mitral regurgitation. Tricuspid Valve Tricuspid valve grossly normal, there is trace tricuspid regurgitation, tricuspid regurgitation jet velocity is inadequate for calculation of the right ventricular systolic pressure. Pulmonic Valve Pulmonic valve is poorly visualized. Great Vessels Aortic root is normal size. Pericardium No significant pericardial effusion noted. Conclusion 1. Mildly enlarged left atrium, normal left ventricular size, mild concentric left ventricular hypertrophy, visually estimated ejection fraction 50% with no regional wall motion abnormality, grade 1 diastolic dysfunction seen without tissue Doppler evidence of raise left atrial pressure. 2. Mild mitral and tricuspid regurgitation. 3. No significant pericardial effusion noted. Electronically signed by : Memo Elizalde, 03/14/2021 15:22:08
[2021-03-14 14:01] LABS: Adenovirus,PCR Not Detected (NotDetected); Bordetella Pertussis Not Detected (NotDetected); Chlamydophila Pneumoniae, PCR Not Detected (NotDetected); Coronavirus 19, PCR Not Detected (NotDetected); Coronavirus 229E Not Detected (NotDetected); Coronavirus NL63 Not Detected (NotDetected); Coronavirus OC43 Not Detected (NotDetected); Coronovirus HKU1,PCR Not Detected (NotDetected); Human Metapneumovirus Not Detected (NotDetected); Influenza A, PCR Not Detected (NotDetected); Influenza AH1, 2009 Not Detected (NotDetected); Influenza AH1, PCR Not Detected (NotDetected); Influenza AH3,PCR Not Detected (NotDetected); Influenza B, PCR Not Detected (NotDetected); Mycoplasma Pneumoniae, PCR Not Detected (NotDetected); Parainfluenza 1, PCR Not Detected (NotDetected); Parainfluenza 2, PCR Not Detected (NotDetected); Parainfluenza 3, PCR Not Detected (NotDetected); Parainfluenza 4, PCR Not Detected (NotDetected); Respiratory Syncytial Virus Not Detected (NotDetected); Rhinovirus/Enterovirus Not Detected (NotDetected)
--- NOTE | 2021-03-14 14:03 | HMH.CNCARD ---
History of Present Illness Consult date: 03/14/21 Requesting physician: Dre Jacobo Consult reason: chest pain Chief complaint: chest pain Additional Medical History:: 1. Coronary artery disease A. Non-ST elevation [place], 06/2020, left heart cath results: ANGIOGRAPHIC RESULTS The left main artery Normal The left anterior descending artery Has a proximal ruptured plaque creating an 80% stenosis. KATE II flow was present. Following the procedure the proximal LAD is widely patent with excellent KATE-3 flow followed by mid vessel 30 to 40% smooth stenosis The circumflex artery A large ramus intermedius has a proximal 90% stenosis. The true circumflex artery is a small vessel and normal The right coronary artery Is a large dominant vessel with mild proximal and mid vessel 10% luminal irregularities The GIBBS ventriculogram reveals Preserved 55% with mid anterior apical hypokinesis The left ventricular end-diastolic pressure 10 mmHg IMPRESSION Critical two-vessel coronary disease as described above with critical disease in the proximal LAD and proximal large ramus intermedius Successful stenting the proximal LAD and proximal large ramus intermedius critical disease reduced to 0% with one drug-eluting stent in each vessel Preserved ejection fraction with regional wall motion abnormality Normal left ventricular end-diastolic pressure PLAN 1. Brilinta 90 twice daily plus aspirin 81 mg daily for 1 year 2. LDL less than 55 3. Avoidance of tobacco products 4. PARRIS inhibitor is on beta-blockers once hemodynamically stable to tolerate medicines 5. Cardiac rehabilitation Electronically signed by : Prashant Fernandez, 06/28/2020 14:30:27 B. Ischemic cardiomyopathy, 06/2020, EF 30%, mild left atrial enlargement, mild concentric LVH, multiple segmental wall motion abnormalities (mild hypo-to akinesis involving mid to distal septum, anterior, anterior apical and apical wall), grade 1 diastolic dysfunction, mild MR and TR. C. Limited echocardiogram 07/17/2020, ejection fraction improved to 55% with no wall motion abnormalities identified. 2. Hypertension 3. Hyperlipidemia, on statin therapy History of present illness: Approximately 30 minutes prior to arrival, she developed diffuse anterior chest pain that she describes as twisting tightness, radiated to both ears and gave her headache. Denies shortness of breath at rest but has some dyspnea with exertion. No nausea or vomiting. No radiation to the back. No numbness or weakness of the extremities. No visual changes. She felt hot but did not break out in a sweat. The chest pain feels the same as it did when she had a heart attack in June 2020, she had 2 stents at that time. This is the first episode of chest pain that she has had since then. She did not have ear pains or headache with her ME. The above per Dr. Garcia The events as noted above were confirmed by the patient. She denies missing any doses of her antiplatelet medications or her cardiac medications. She had been in her usual state of health until today when riding in a car chest pain radiating to the neck occurred. She denies any heartburn or reflux type symptoms. No recent nausea vomiting or diarrhea. She has been exposed to Covid within the last 3 to 4 weeks. Nasal swab results are pending at this time. EKG is sinus rhythm with no acute ST segment changes. Initial troponin results is within normal limits. [facility] History Medical History: Reports:: Coronary Artery Disease, Hyperlipidemia, Hypertension, Myocardial Infarction Denies:: Atherosclerotic Heart Disease, Cancer, Chronic Obstructive Pulmonary Disease (COPD), Diabetes Mellitus Type 1, Diabetes Mellitus Type 2, Gastroesophageal Reflux Disease(GERD), MRSA *Have you ever received a pneumonia vaccine?: Yes *Have you received a flu vaccine this season?: Yes Other Surgeries: Yes: Cardiac Catheterization, Coronary Stent, Hysterectomy-To
--- NOTE | 2021-03-14 14:12 | PC.NURSE ---
Dr Garcia spoke with Dr Jacobo for admission
--- NOTE | 2021-03-14 14:13 | PC.NURSE ---
Vascular here for echo
--- NOTE | 2021-03-14 15:11 | P.CONPHA_ITS ---
[facility] Pharmacy VTE Monitoring - Patient Demographics Admission date: 03/14/21 Report Date: 03/14/21 Time: 15:11 Allergies/Adverse Reactions: Patient Allergies No Known Allergies Allergy (Verified 02/05/21 11:48) Height: 1.65 m Weight: 66.224 kg Patient Problems: Current Active Problems Angina pectoris (Acute) History of ischemic cardiomyopathy (Acute) Chest pain (Acute) CAD (coronary artery disease) (Chronic) Hypertension (Chronic) Dyslipidemia (Chronic) - VTE Risk Labs: VTE Related Lab Results Hgb 12.1 g/dL (12.2-16.2) L 03/14/21 13:20 Hct 38.1 % (37.0-47.0) 03/14/21 13:20 Plt Count 365 K/mm3 (142-424) 03/14/21 13:20 BUN 25 mg/dl (7-17) H 03/14/21 13:20 Creatinine 0.80 mg/dl (0.52-1.04) 03/14/21 13:20 Estimated Creat Clear 52 mL/min (50-200) 03/14/21 13:20 - Prophylaxis VTE Prophylaxis Ordered?: Yes Types of VTE Prophylaxis: TEDS Knee High Location of Applied Device: Bilateral Lower Extremeties
--- NOTE | 2021-03-14 15:17 | HMH.PHAINT ---
MEDICATION RECONCILIATION COMPLETED USING EXTERNAL FILL HISTORY AND PHYSICIAN OFFICE LIST
--- NOTE | 2021-03-14 16:54 | PC.NURSE ---
REPORT CALLED TO FLOOR
[2021-03-14 17:00] LABS: Troponin I < 0.01 ng/ml (0.00-0.034)
--- NOTE | 2021-03-14 17:05 | PC.NURSE ---
Pt arrived to the floor at this time.
[2021-03-14 19:54] LABS: Troponin I < 0.01 ng/ml (0.00-0.034)
--- NOTE | 2021-03-14 23:02 | PC.NURSE ---
pt showered and shaved for heart cath tomorrow.
[2021-03-15] VITALS (20 sets, daily range): BP systolic 104–130; BP diastolic 48–72; PULSE 55–70; RESP 16–18; TEMP 36.4–36.6; O2SAT 95–99; BMI 24.0
--- NOTE | 2021-03-15 | IR_ITS ---
APPROVED REPORT Patient Location: Inpatient PROCEDURES Left heart catheterization Left ventriculogram Selective coronary angiogram INDICATION Known coronary artery disease, Unstable angina, Informed consent was obtained prior to the procedure. COMPLICATIONS None Estimated Blood Loss: Less than 10 mls TECHNIQUE One percent lidocaine was used to anesthetize the right groin. The right femoral artery was accessed via the Seldinger technique. A 4-Finnish sheath was placed in the right femoral artery. The JL-4 and JR-4 catheter was also used to perform left heart catheterization left ventriculogram and selective coronary angiogram. At the end of the procedure the patient was transferred to the post-op holding area in stable condition for arterial sheath removal. ANGIOGRAPHIC RESULTS The left main artery Normal The left anterior descending artery Is proximally normal and has a stent in the mid segment which is widely patent free of in-stent restenosis with excellent proximal and distal transitioning. The remaining LAD proper has mild 10 to 20% atheromatous plaque distal to the stent. A large first diagonal artery has a stent in the proximal segment which has concentric 30 to 40% in-stent restenosis in the distal segment The circumflex artery Small nondominant normal The right coronary artery Is large and dominant with mild distal smooth 10 to 20% stenosis The GIBBS ventriculogram reveals Normal to preserved at 55 to 60% The left ventricular end-diastolic pressure moderately elevated at 25-30 mm Hg IMPRESSION Widely patent coronary arteries as described above Preserved ejection fraction Moderate to severely elevated LVEDP PLAN 1. Treat diastolic dysfunction which is almost certainly etiology for patient's angina pectoris 2. Ongoing risk factor modification for coronary artery disease Electronically signed by : Prashant Fernandez, 03/15/2021 12:33:02
--- NOTE | 2021-03-15 03:55 | PC.NURSE ---
pt is AxOx4, no complaints of chest pain or SOA, telemetry has shown NSR, ambulating in room independently
--- NOTE | 2021-03-15 07:18 | HMH.HP ---
*Admission Date: 03/14/21 *Chief complaint: Chest pain *History of present illness: 75-year-old female presented to the ER with complaint of chest pain similar to her prior non-STEMI in June 2020. Patient admits the pain was not quite as intense but it did radiate up into the right jaw all. Patient does not have nitroglycerin at home and presented to the emergency department. In the ER she underwent evaluation with initial troponin negative and no EKG changes. Cardiology was consulted from the ER and evaluated the patient. Recommendation was made to admit the patient for rule out of [place] and plan for left heart catheterization today. Patient has not had any further chest pains overnight while having nitroglycerin paste applied. She denies shortness of breath or diaphoresis associated with her episode of chest pain but does admit she felt hot. Patient also complains of muscle soreness which she believes began after her hospitalization in June 2020 for her non-STEMI [facility] History I have reviewed the patient's past medical history: Yes Medical History: Reports:: Congestive Heart Failure, Coronary Artery Disease, Hyperlipidemia, Hypertension, Myocardial Infarction Denies:: Atherosclerotic Heart Disease, Cancer, Chronic Obstructive Pulmonary Disease (COPD), Diabetes Mellitus Type 1, Diabetes Mellitus Type 2, Gastroesophageal Reflux Disease(GERD), MRSA *Have you ever received a pneumonia vaccine?: No *Have you received a flu vaccine this season?: No Other Surgeries: Yes: Appendectomy, Cardiac Catheterization, Colonoscopy, Coronary Stent, Hysterectomy-Total, Other Amputation: No Fractures: No - *Social History Smoking Status: Never smoker Alcohol Intake: never Substance Use Type: denies use *Occupational Status:: retired Housing: house Household Members: none *Travel in the last 8 weeks: None Family Hx:: Cancer, Coronary Artery Disease, Heart Attack, Hyperlipidemia, Hypertension Review of Systems - Constitutional Denies body ache(s), Denies chills - Eyes Denies blurry vision - ENT Denies difficulty swallowing - *Cardiovascular Denies chest pain - *Respiratory Denies change in phlegm color, Denies chest congestion, Denies cough - *Gastrointestinal Denies abdominal pain - *Musculoskeletal Reports joint pain, Reports body aches - *Neurologic Reports headache(s) Meds Home Medications Medication Instructions Recorded Confirmed Type Aspirin [Aspirin 81mg EC Tab] 81 mg PO DAILY 03/14/21 03/14/21 History Atorvastatin Calcium [Lipitor 40mg 40 mg PO HS 03/14/21 03/14/21 History Tablet*] Hydrocodone/Acetaminophen 1 tab PO QIDP PRN 03/14/21 03/14/21 History [Hydrocodone-Acetamin 10-325 mg] Metoprolol Succinate [Toprol XL 12.5 mg PO DAILY 03/14/21 03/14/21 History 25mg tablet] Spironolactone [Aldactone 25mg 25 mg PO DAILY 03/14/21 03/14/21 History Tab] Ticagrelor [Brilinta 90mg 90 mg PO BID 03/14/21 03/14/21 History Tablet] lisinopriL [Zestril 2.5mg Tab] 2.5 mg PO DAILY 03/14/21 03/14/21 History Allergies Allergy/AdvReac Type Severity Reaction Status Date / Time No Known Allergies Allergy Verified 03/14/21 17:18 Exam Vital signs and Labs for Last 24 Hours: Temp Pulse Resp BP Pulse Ox 97.8 F 62 16 104/54 L 96 03/15/21 04:00 03/15/21 04:00 03/15/21 04:00 03/15/21 04:00 03/15/21 04:00 Laboratory Results - last 24 hr 03/14/21 13:20: WBC 8.5, RBC 4.01 L, Hgb 12.1 L, Hct 38.1, MCV 95.1, MCH 30.2, MCHC 31.8, RDW 12.7, Plt Count 365, MPV 7.3 L, Neut % (Auto) 64.4, Lymph % (Auto) 23.5, [place] % (Auto) 7.3, Eos % (Auto) 3.8, Baso % (Auto) 1.0, Neut # (Auto) 5.5, Lymph # (Auto) 2.0, [place] # (Auto) 0.6, Eos # (Auto) 0.3, Baso # (Auto) 0.1 03/14/21 13:20: Sodium 137, Potassium 4.7, Chloride 103, Carbon Dioxide 25, Anion Gap 13.7, BUN 25 H, Creatinine 0.80, Estimated Creat Clear 52, Estimated GFR 70, Est GFR ( Amer) 85, Glucose 104 H, Calcium 9.8, Troponin I < 0.0
--- NOTE | 2021-03-15 09:13 | HMH.PNCARD ---
Subjective Date: 03/15/21 Time: 09:13 Principal diagnosis: chest pain Interval history: 75-year-old white female in bed in no acute distress. No further chest pain overnight but did have a headache related to the nitroglycerin paste which was removed earlier this morning. Troponins returned all normal overnight and telemetry showed no arrhythmias. Exam Vital signs and Labs for Last 24 Hours: Temp Pulse Resp BP Pulse Ox 97.8 F 65 16 115/66 99 03/15/21 07:37 03/15/21 07:37 03/15/21 07:37 03/15/21 07:37 03/15/21 07:37 Laboratory Results - last 24 hr 03/14/21 13:20: WBC 8.5, RBC 4.01 L, Hgb 12.1 L, Hct 38.1, MCV 95.1, MCH 30.2, MCHC 31.8, RDW 12.7, Plt Count 365, MPV 7.3 L, Neut % (Auto) 64.4, Lymph % (Auto) 23.5, [place] % (Auto) 7.3, Eos % (Auto) 3.8, Baso % (Auto) 1.0, Neut # (Auto) 5.5, Lymph # (Auto) 2.0, [place] # (Auto) 0.6, Eos # (Auto) 0.3, Baso # (Auto) 0.1 03/14/21 13:20: Sodium 137, Potassium 4.7, Chloride 103, Carbon Dioxide 25, Anion Gap 13.7, BUN 25 H, Creatinine 0.80, Estimated Creat Clear 52, Estimated GFR 70, Est GFR ( Amer) 85, Glucose 104 H, Calcium 9.8, Troponin I < 0.01 03/14/21 13:52: Chlamy pneumoniae PCR Not detected, Adenovirus (PCR) Not detected, B. pertussis DNA (PCR) Not detected, Coronavirus OC43 (PCR) Not detected, Coronavirus HKU1 (PCR) Not detected, Coronavirus 229E (PCR) Not detected, SARS-CoV-2 (PCR) Not detected, Coronavirus NL63 (PCR) Not detected, Human Metapneumovir PCR Not detected, Influenza A (H1) PCR Not detected, Influ A (H1N1/09) PCR Not detected, Influenza A (H3) PCR Not detected, Influenza Type A (PCR) Not detected, Influenza Type B (PCR) Not detected, M. pneumoniae (PCR) Not detected, Parainfluenza 1 (PCR) Not detected, Parainfluenza 2 (PCR) Not detected, Parainfluenza 3 (PCR) Not detected, Parainfluenza 4 (PCR) Not detected, RSV (PCR) Not detected, Entero/Rhino (PCR) Not detected 03/14/21 16:20: Troponin I < 0.01 03/14/21 19:20: Troponin I < 0.01 I & O for Last 24 hours: Intake & Output 03/12/21 03/13/21 03/14/21 03/15/21 11:59 11:59 11:59 11:59 Intake Total 120 / 120 Output Total 0 / 0 Balance 120 / 120 Weight 149 lb 10.396 oz - Constitutional no acute distress - *Routine HEENT Exam Head: Present: normocephalic Eye: Present: EOMI, PERRL ENT: Present: mucous membranes moist - *Routine Neck Exam Present: supple. Absent: lymphadenopathy - *Routine Respiratory Exam Present: CTA bilaterally - *Routine Cardiovascular Exam Present: RRR - *Routine Abdominal Exam Present: soft, normoactive bowel sounds. Absent: tenderness - *Routine Extremities Exam Absent: cyanosis, clubbing, edema - *Routine Skin Exam Present: warm. Absent: rash - *Routine Neurological Exam Present: alert, oriented X3 Progress Note: A&P (1) Chest pain Status: Acute (2) CAD (coronary artery disease) Status: Chronic (3) Dyslipidemia Status: Chronic (4) Hypertension Status: Chronic (5) History of ischemic cardiomyopathy Status: Acute Assessment and Plan for All Diagnoses:: Proceed with left heart catheterization to reevaluate coronary artery disease with history of stents to the LAD and RCA in June 2020. Echocardiogram confirms preserved ejection fraction. Further recommendations pending above results.
--- NOTE | 2021-03-18 07:03 | HMH.DCSUM ---
General - General Admission date:: 03/14/21 Discharge date: 03/15/21 HPI HPI: 75-year-old female presented to the ER with complaint of chest pain similar to her prior non-STEMI in June 2020. Patient admits the pain was not quite as intense but it did radiate up into the right jaw all. Patient does not have nitroglycerin at home and presented to the emergency department. In the ER she underwent evaluation with initial troponin negative and no EKG changes. Cardiology was consulted from the ER and evaluated the patient. Recommendation was made to admit the patient for rule out of [place] and plan for left heart catheterization today. Patient has not had any further chest pains overnight while having nitroglycerin paste applied. She denies shortness of breath or diaphoresis associated with her episode of chest pain but does admit she felt hot. Patient also complains of muscle soreness which she believes began after her hospitalization in June 2020 for her non-STEMI Hospital Course Hospital Course: The morning after admission patient underwent left heart catheterization. There is no new obstructive disease but patient had elevated left ventricular end-diastolic pressure which was felt to be the source of her angina. Diuretics were recommended. Patient was discharged home later in the day and will follow up with cardiology next week. Patient will follow-up with her primary care provider next week as well. Objective Vital signs: Temp Pulse Resp BP Pulse Ox 97.8 F 64 16 108/62 L 98 03/15/21 07:37 03/15/21 15:45 03/15/21 15:45 03/15/21 15:45 03/15/21 15:45 DS: Diagnosis - Discharge Diagnosis (1) Chest pain Status: Acute (2) CAD (coronary artery disease) Status: Chronic (3) Dyslipidemia Status: Chronic (4) Hypertension Status: Chronic (5) History of ischemic cardiomyopathy Status: Acute Discharge Plan - Patient Discharge Instructions ACTIVITY: Continue current activity DIET: continue same diet Patient Instructions: Cardiac Catheterization, DI for Chest Pain, Surgical Site Infection - Follow up Plan Follow up with: Grayson Mcdonnell [Primary Care Provider] - 03/21/21 11:00 am Prashant Fernandez MD [Staff Physician] - 03/22/21 10:00 am Disposition: Home, Self-Prison Medications: Home Medications Medication Instructions Recorded Confirmed Type Aspirin [Aspirin 81mg EC Tab] 81 mg PO DAILY 03/14/21 03/14/21 History Hydrocodone/Acetaminophen 1 tab PO QIDP PRN 03/14/21 03/14/21 History [Hydrocodone-Acetamin 10-325 mg] Metoprolol Succinate [Toprol XL 12.5 mg PO DAILY 03/14/21 03/14/21 History 25mg tablet] Spironolactone [Aldactone 25mg 25 mg PO DAILY 03/14/21 03/14/21 History Tab] Ticagrelor [Brilinta 90mg 90 mg PO BID 03/14/21 03/14/21 History Tablet] lisinopriL [Zestril 2.5mg Tab] 2.5 mg PO DAILY 03/14/21 03/14/21 History Rosuvastatin Calcium 10 mg PO HS #30 tab 03/15/21 Rx Prescriptions/Medication Reconciliation: New Rosuvastatin Calcium 10 mg PO HS #30 tab Continued Ticagrelor [Brilinta 90mg Tablet] 90 mg PO BID lisinopriL [Zestril 2.5mg Tab] 2.5 mg PO DAILY Metoprolol Succinate [Toprol XL 25mg tablet] 12.5 mg PO DAILY Hydrocodone/Acetaminophen [Hydrocodone-Acetamin 10-325 mg] 1 tab PO QIDP PRN PRN Reason: PAIN Spironolactone [Aldactone 25mg Tab] 25 mg PO DAILY Aspirin [Aspirin 81mg EC Tab] 81 mg PO DAILY Discontinued Atorvastatin Calcium [Lipitor 40mg Tablet*] 40 mg PO HS - Problem Reconciliation Problems Reviewed?: Yes
== END 2021-03-15 16:25 | disposition home or self-care (01) ==
LOC: ER 14:00 → 2ND 17:21
PROVIDERS: Internal Medicine; Admitting Provider Family Medicine; Emergency Provider Emergency Medicine; PCP Family Medicine; Visit Provider Family Medicine
DX: I25.110 Atherosclerotic heart disease of native coronary artery with unstable angina pectoris (principal); T82.855A Stenosis of coronary artery stent, initial encounter; I25.2 Old myocardial infarction; I11.0 Hypertensive heart disease with heart failure; Z79.82 Long term (current) use of aspirin; Z79.899 Other long term (current) drug therapy; Z79.01 Long term (current) use of anticoagulants; I50.9 Heart failure, unspecified; E78.5 Hyperlipidemia, unspecified
CPT/HCPCS: 71045; 80048; 84484; 85025; 87581; 87633; 87798; 93005; 93306; 93458; 99152; 99284; C1725; C1769; G0378; J1644; Q9967

== ENCOUNTER 2022-06-25 12:33 | Emergency (ER) | payer MEDICARE, MEDICAID, SELFPAY ==
[2022-06-25] VITALS (10 sets, daily range): BP systolic 90–120; BP diastolic 47–65; PULSE 63–82; RESP 15–18; TEMP 36.6–36.7; O2SAT 96–99; BMI 23.2
--- NOTE | 2022-06-25 12:48 | ECG_ITS ---
APPROVED REPORT Exam: Resting ECG HR:77 bpm ECG Measurements Heart Rate 77 AXES NE 224 P 70 QRSd 91 QRS 26 QT 369 T 131 QTc 401 Conclusion SINUS RHYTHM WITH FIRST DEGREE AV BLOCK NONSPECIFIC T-WAVE ABNORMALITY ABNORMAL ECG UNCONFIRMED REPORT Electronically signed by : Dre Lewis MD 07/02/2022 21:01:57
--- NOTE | 2022-06-25 13:09 | XR_ITS ---
FINAL REPORT CLINICAL HISTORY: Lt sided CP x 1 day COMPARISON: 03/14/2021 FINDINGS: A single portable view of the chest was obtained. The heart size and pulmonary vascularity are within normal limits. The mediastinum is within normal limits. No acute pulmonary abnormality is identified. The bony thorax is intact. IMPRESSION: No active cardiopulmonary disease. Reviewed, Interpreted and Dictated by Ricki Zepeda III, MD Transcribed by Sammie Pierce Authenticated and [facility]
--- NOTE | 2022-06-25 13:15 | HMH.EDGENADL ---
ED Disposition Clinical Impression: Chest pain Qualifiers: Chest pain type: unspecified Qualified Code(s): R07.9 - Chest pain, unspecified Disposition: Home, Self-Care Condition on Discharge: Good Additional Instructions: Please follow-up with your PCP within the next couple days. Please return to the ED with any new or worsening symptoms. Referrals: Grayson Mcdonnell [Primary Care Provider] - - Critical Care Critical Care Time: No Attestation: On 06/25/22, the high probability of a clinically significant, sudden or life threatening deterioration of the following system(s) required my full and direct attention, intervention and personal management. The time I documented below is in addition to time spent performing reported procedures but includes the following listed in this critical care notation. Medical Decision Making - Sushil Inquiry Pt receiving controlled substance: No Sushil was queried for this patient: No Vital Signs: 06/25/22 13:02 06/25/22 13:30 06/25/22 14:00 Temperature 98.1 F Temperature Source Oral Pulse Rate 67 66 Pulse Rate [Left Radial] 82 Respiratory Rate 16 16 16 Blood Pressure 109/53 L 90/50 L Blood Pressure [Right Arm] 120/65 Blood Pressure Mean 71 63 Blood Pressure Mean [Right Arm] 83 02 Sat by Pulse Oximetry 97 99 97 Oxygen Delivery Method Room Air Room Air 06/25/22 14:30 06/25/22 15:00 06/25/22 15:30 Temperature Temperature Source Pulse Rate 64 65 65 Pulse Rate [Left Radial] Respiratory Rate 16 15 17 Blood Pressure 97/47 L 91/47 L 100/62 L Blood Pressure [Right Arm] Blood Pressure Mean 65 59 71 Blood Pressure Mean [Right Arm] 02 Sat by Pulse Oximetry 98 98 99 Oxygen Delivery Method 06/25/22 16:00 06/25/22 16:30 Temperature Temperature Source Pulse Rate 73 67 Pulse Rate [Left Radial] Respiratory Rate 18 16 Blood Pressure 90/63 L 106/60 L Blood Pressure [Right Arm] Blood Pressure Mean 72 72 Blood Pressure Mean [Right Arm] 02 Sat by Pulse Oximetry 98 98 Oxygen Delivery Method - Lab Data Lab Results 06/25/22 12:52: WBC 6.7, RBC 3.77 L, Hgb 11.8 L, Hct 37.0, MCV 98.0, MCH 31.2, MCHC 31.8, RDW 13.4, Plt Count 397, MPV 7.7, Neut % (Auto) 69.6, Lymph % (Auto) 21.5, [place] % (Auto) 6.0, Eos % (Auto) 2.0, Baso % (Auto) 0.9, Neut # (Auto) 4.6, Lymph # (Auto) 1.4, [place] # (Auto) 0.4, Eos # (Auto) 0.1, Baso # (Auto) 0.1 06/25/22 12:52: Sodium 138, Potassium 4.1, Chloride 103, Carbon Dioxide 30, Anion Gap 9.1, BUN 26 H, Creatinine 1.00, Estimated Creat Clear 51, Estimated GFR 54 L, Est GFR ( Amer) 66, Glucose 134 H, Calcium 9.9, Troponin I < 0.01 06/25/22 16:08: Troponin I < 0.01 Result diagrams: 06/25/22 12:52 06/25/22 12:52 Orders (Tests/Meds): ORDERS Category Date Time Status Troponin I Q3H Lab 06/25/22 19:15 Ordered - MARLON Score for Non-Stemi Age of Patient: 70-79 years old Heart Rate: 70-89 bpm Systolic Blood Pressure: 120-139 mmhg Serum Creatinine: 0.80-1.19 mg/dl CHF [place] Class: I-No CHF Other Risk Factors: None Non-Stemi Risk Score: 125 Medical Decision Narrative: In review this is a 76-year-old female who presents with left-sided intermittent chest pain. Hemodynamically stable and nontoxic-appearing. EKG shows normal sinus rhythm without any acute ST abnormalities and no evidence of STEMI. Her story is not wildly consistent with any cardiac pathology but with her history of stenting will require a extensive cardiac work-up. Her laboratory studies were largely unremarkable and her delta troponin was completely flat. Chest x-ray was unremarkable. Patient has a heart score of 4. Overall I think that she can continue to follow-up with her PCP and operations management professionals for further work-up of this if needed but I gave her extremity strict return precautions. Stable for discharge. Return precautions given. General Adult HPI - General Chief complaint: PAIN Stated complaint: left side pain ariund her
[2022-06-25 13:20] LABS: Basophils # 0.1 K/mm3 (0-0.2); Basophils % 0.9 % (0.1-2.0); Eosinophils # 0.1 K/mm3 (0.0-0.4); Hemoglobin 11.8 g/dL (12.2-16.2); Lymphocytes # 1.4 K/mm3 (0.7-4.5); Lymphocytes % 21.5 % (10-50); Mean Corpuscular HGB Conc 31.8 g/dL (31.8-35.4); Mean Corpuscular Hemoglobin 31.2 pg (27.0-31.2); Mean Platelet Volume 7.7 fl (7.4-10.4); Monocytes # 0.4 K/mm3 (0.1-1.0); Neutrophils # 4.6 K/mm3 (1.8-7.8); Neutrophils % 69.6 % (37.0-80.0); Platelet Count 397 K/mm3 (142-424); Red Blood Count 3.77 M/mm3 (4.20-5.40); Red Cell Distribution Width 13.4 % (11.5-17.5); White Blood Count 6.7 K/mm3 (4.8-10.8)
[2022-06-25 13:24] LABS: Anion Gap 9.1 mEq/L (5-15); Blood Urea Nitrogen 26 mg/dl (7-17); Calcium 9.9 mg/dl (8.4-10.2); Carbon Dioxide 30 mmol/L (22.0-30.0); Chloride 103 mmol/L (98-107); Creatinine Clearance Estimated 51 mL/min (50-200); Estimated Glomerular Filt Rate 54 ml/min (>60); GFR (African American) 66 ML/MIN (>60); Glucose 134 mg/dl (74-100); Potassium 4.1 mmoL/L (3.5-5.1); Sodium 138 mmol/L (136-145)
--- NOTE | 2022-06-25 13:31 | PC.NURSE ---
rad at BS for portable xray
[2022-06-25 13:38] LABS: Troponin I < 0.01 ng/ml (0.00-0.034)
--- NOTE | 2022-06-25 14:28 | PC.NURSE ---
rounded on pt at this time, pt states no needs at this time, offered pt blanket-pt declined. Will continue to monitor
--- NOTE | 2022-06-25 16:13 | PC.NURSE ---
dmitriy lacy sent to the lab
--- NOTE | 2022-06-25 16:42 | PC.NURSE ---
updated pt on poc, pt denies needing anything at this time
[2022-06-25 16:50] LABS: Troponin I < 0.01 ng/ml (0.00-0.034)
== END 2022-06-25 17:08 | disposition home or self-care (01) ==
PROVIDERS: Emergency Provider Student in an Organized Health Care Education/Training Program; PCP Family Medicine
DX: I10 Essential (primary) hypertension (principal); I25.2 Old myocardial infarction; I25.10 Atherosclerotic heart disease of native coronary artery without angina pectoris; Z95.5 Presence of coronary angioplasty implant and graft
CPT/HCPCS: 71045; 80048; 84484; 85025; 93005; 99284